=== PATIENT | male | born 1950 | race Caucasian/White ===

== ENCOUNTER 2017-11-05 13:34 | Emergency (ER) | payer MEDICARE, BC, SELFPAY ==
[2017-11-05 13:35] VITALS: BP 129/75; PULSE 64; RESP 20; TEMP 36.6; O2SAT 100; BMI 53.8
--- NOTE | 2017-11-05 14:03 | RAD_ITS ---
STUDY: X-RAY - LUMBAR SPINE REASON FOR EXAM: Male, 67 years old. Back pain. TECHNIQUE: 3 view(s) of the lumbar spine were obtained. COMPARISON: None FINDINGS: Normal lumbar lordosis. There is no substantial scoliosis. There is a normal alignment of the vertebrae. Normal vertebral bodies and endplates. There is intervertebral disc space narrowing in the lower thoracic and upper lumbar spine. There is also mild intervertebral disc space narrowing at L4-5. There is diffuse facet sclerosis. There is marked aortic calcification. RAD/Lumbar Spine 2 or 3 Views IMPRESSION: Lumbar spondylosis as described. No acute pathology. Electronically Signed: Gunnar Berry MD at 14:51 EST , Service support ,
--- NOTE | 2017-11-05 14:03 | ED.VISSUMM ---
- ER Visit Summary Date of Service: 11/05/17 Chief Complaint: Back injury History of Present Illness: The patient is a 67 M no significant prior medical history presents to the emergency department with back injury. Patient states he was in his normal state of health. He states yesterday, he was picking up a sweeper to look under it. He felt something pop in the right side of his low back. Since then, he has had pain into his buttock and down his leg. He states that because of the pain, is a hard time ambulating. He denies any weakness. He denies any numbness or tingling. He has had no change in bowel or bladder habits. He did not fall. He states that he did have similar symptoms about 10 years ago when he was diagnosed with sciatica. The patient has not taken anything for his pain. Physical Examination: Afebrile, vitals unremarkable. Well-appearing obese male no acute distress. Head is normocephalic, atraumatic. Pupil's equal round reactive, extraocular muscles intact. Neck supple. Heart regular rate and rhythm. Lungs clear, chest nontender. Abdomen soft, nontender, nondistended. No pulsatile mass. Patient has paraspinal tenderness in the right lumbar area, but no bony tenderness. Straight leg raise is negative bilaterally. 2+ symmetric lower extremity pulses. 2+ reflexes. No clonus. No weakness of dorsiflexion, plantar flexion, or extensor hallucis longus bilaterally. Test Results: X-ray shows chronic change without evidence of acute fracture. Emergency Department Course and Treatment: Patient has no red flag symptoms. He does have some slight radicular pain. His pulses are normal. His reflexes are normal. He was given oral analgesics with some improvement of pain. His x-rays show no evidence of acute compression fracture. The patient has had prior symptoms with improvement with steroids. He is given a dose of prednisone and I will keep him on Medrol. He is comfortable with this plan of care. I do feel he is likely going to need outpatient physical therapy. Patient was counseled on concerning symptoms and reasons to return. He will be discharged home. Treatment Plan: [] Disposition: Charge Impression: Acute lumbar strain with radiculopathy This note was generated with [employer] dictation software. It may contain incorrect words, spelling, and punctuation that were not noted in review of the chart prior to signing ED Disposition - Plan for ED Patient: Disposition: Home or Assisted Living Chief Complaint: Back Instructions: ED Sprain Strain Lumbar, ED Sciatica Prescriptions: Hydrocodone Bitart/Apap 5-325 [[place] 5/325] 1 tab PO Q4H PRN PRN 3 Days #12 tab PRN Reason: Pain MethylPREDNISolone DosePak [Medrol DosePak] 4 mg PO UD #1 box Referrals: Jose Fung Chi, MD [Primary Care Provider] -
[2017-11-05] MEDS: HYDROcodone Bitartrate/Apap 5/325 Tablet PO (14:11)
== END 2017-11-05 15:10 | disposition home or self-care (01) ==
PROVIDERS: Emergency Provider Emergency Medicine; Family Provider Family Medicine Geriatric Medicine; PCP Family Medicine Geriatric Medicine
DX: S39.012A Strain of muscle, fascia and tendon of lower back, initial encounter (principal); M54.16 Radiculopathy, lumbar region; X50.1XXA Overexertion from prolonged static or awkward postures, initial encounter; Y93.89 Activity, other specified; Y92.9 Unspecified place or not applicable; E66.9 Obesity, unspecified; Z68.43 Body mass index [BMI] 50.0-59.9, adult; Z87.891 Personal history of nicotine dependence
CPT/HCPCS: 72100; 99283

== ENCOUNTER → 2017-11-22 16:40 | Outpatient (CLI) | payer MEDICARE, BC, SELFPAY ==
[2017-11-22 17:24] LABS: Absolute Lymphocyte Count 2.33 X10^3/ul (0.83-4.51); Absolute Neutrophil Count 4.8 X10^3/uL (2.0-7.7); Basophil# 0.02 X10^3/uL; Basophil% 0.2 % (0-1); Eosinophils% 1.2 % (0-5); Hematocrit 43.2 % (40-54); Hemoglobin 14.1 g/dl (13.0-16.5); Lymphocyte # 2.33 X10^3/ul (4.0); Lymphocyte % 29.1 % (19-41); Mean Corp Hgb Conc 32.6 g/gl (32-36); Mean Corpuscular Hgb 30.8 pg (27.0-32.0); Mean Corpuscular Volume 94.3 fL (80-94); Mean Platelet Vol. 11.6 fl (6.2-12.0); Monocyte# 0.78 X10^3/uL; Monocyte% 9.7 % (0-10); Neutrophil # 4.78 X10^3/uL (2.7-7.7); Neutrophil % 59.7 % (47-70); Platelet Count 163 K/mm3 (150-450); RBC Distribution Width CV 14.1 % (11.6-14.6); RBC Distribution Width SD 47.6 fl (35.1-43.9); Red Blood Count 4.58 M/mm3 (4.6-6.2)
[2017-11-22 17:26] LABS: Differential Indicated SCAN CRITERIA MET; POSITIVE COUNT YES; POSITIVE DIFFERENTIAL NO; POSITIVE MORPHOLOGY YES
[2017-11-22 17:47] LABS: ALB/GLOB Ratio 0.9 RATIO (0.9-2.4); AST(SGOT) 17 U/L (15-37); Alanine Aminotransfer ALT/SGPT 20 U/L (16-61); Albumin, Serum 3.2 g/dL (3.2-5.0); Alkaline Phosphatase 104 U/L (45-117); Anion Gap 9 (5-15); BUN 22 mg/dL (7-18); BUN/Creat Ratio 19.8 RATIO (10-20); Calcium,Total 7.9 mg/dL (8.5-10.1); Chloride 107 mmol/L (98-107); Creatinine, Serum 1.11 mg/dL (0.70-1.30); EST Glomerular Filtration Rate 70 mL/min (>60); Est Glom Filt Rate - Afr Amer 85 mL/min (>60); Globulin 3.5 g/dL (2.2-4.2); Glucose 90 mg/dL (74-106); PSA,Total - Annual Screen 0.95 ng/mL (0.00-4.00); Potassium 4.6 mmol/L (3.5-5.1); Protein, Total 6.7 g/dL (6.4-8.2); Sodium Level 141 mmol/L (136-145)
[2017-11-22 17:53] LABS: Differential Comment SCANNED
[2017-11-24 13:13] LABS: Hep C Antibodies <0.1 s/co ratio (0.0-0.9)
== END ==
PROVIDERS: Family Provider Family Medicine Geriatric Medicine; PCP Family Medicine Geriatric Medicine; Visit Provider Family Medicine Geriatric Medicine
DX: Z12.5 Encounter for screening for malignant neoplasm of prostate (principal); Z13.89 Encounter for screening for other disorder; R53.83 Other fatigue
CPT/HCPCS: 36415; 80053; 84153; 84443; 85025; 86803; G0103

== ENCOUNTER 2019-03-14 18:35 | Observation (INO) | payer MEDICARE, BC, SELFPAY ==
[2019-03-14 18:35] VITALS: BP 157/78; PULSE 65; RESP 22; TEMP 36.6; O2SAT 96; BMI 52.9
--- NOTE | 2019-03-14 18:47 | CT_ITS ---
STUDY: CT BRAIN WITHOUT CONTRAST REASON FOR EXAM: Male, 69 years old. Vertigo RADIATION DOSAGE (If Supplied By Facility): CTDIvol = ( 44.99 ) mGy, DLP = ( 779.24 ) mGycm TECHNIQUE: Transaxial CT imaging of the brain was performed without administration of intravenous contrast material. Individualized dose optimization techniques were used for this CT. COMPARISON: No relevant priors. FINDINGS: Normal soft tissue structures. Normal calvarium. Normal size ventricles and extra-axial spaces for the patient's age. Minor periventricular white matter ischemic changes.. Normal basal ganglia and thalami. Normal brainstem. Normal cerebellum. There is no intracranial hemorrhage. There are no findings of an acute ischemic infarction. Normal visualized paranasal sinuses. CT/Brain/Head without Contrast IMPRESSION: Minor periventricular white matter ischemic changes. No evidence for acute bleed. If concern for acute infarct MRI recommended. Electronically Signed: Hussain Mcleod MD at 19:49 EDT , Service support ,
[2019-03-14] MEDS: Meclizine HCl 25 MG Tablet PO (19:20)
--- NOTE | 2019-03-14 19:30 | ED.RN ---
ATTEMPTED BLOOD DRAW X [address] AND THEN ANOTHER RN TO DRAW BLOOD.
[2019-03-14 20:05] LABS: Absolute Lymphocyte Count 2.22 X10^3/ul (0.83-4.51); Absolute Neutrophil Count 5.2 X10^3/uL (2.0-7.7); Basophil# 0.04 X10^3/uL; Basophil% 0.5 % (0-1); Eosinophil# 0.27 X10^3/uL; Eosinophils% 3.2 % (0-5); Hematocrit 43.8 % (40-54); Hemoglobin 14.5 g/dl (13.0-16.5); Lymphocyte # 2.22 X10^3/ul (4.0); Mean Corp Hgb Conc 33.1 g/gl (32-36); Mean Corpuscular Hgb 30.5 pg (27.0-32.0); Monocyte# 0.77 X10^3/uL; Neutrophil # 5.23 X10^3/uL (2.7-7.7); Neutrophil % 61.1 % (47-70); Platelet Count 163 K/mm3 (150-450); RBC Distribution Width CV 13.9 % (11.6-14.6); RBC Distribution Width SD 46.4 fl (35.1-43.9); Red Blood Count 4.76 M/mm3 (4.6-6.2); White Blood Count 8.6 K/mm3 (4.4-11.0)
[2019-03-14 20:06] LABS: POSITIVE COUNT NO; POSITIVE DIFFERENTIAL NO; POSITIVE MORPHOLOGY NO
[2019-03-14 20:18] LABS: Anion Gap 5 (5-15); BUN 23 mg/dL (7-18); BUN/Creat Ratio 15.6 RATIO (10-20); Calcium,Total 8.7 mg/dL (8.5-10.1); Chloride 109 mmol/L (98-107); Creatinine, Serum 1.47 mg/dL (0.70-1.30); EST Glomerular Filtration Rate 51 mL/min (>60); Est Glom Filt Rate - Afr Amer 61 mL/min (>60); Estimated Creatinine Clearance 55.14 ml/min; Glucose 94 mg/dL (74-106); Potassium 4.1 mmol/L (3.5-5.1); Sodium Level 140 mmol/L (136-145)
--- NOTE | 2019-03-14 21:04 | ED.VISSUMM ---
- ER Visit Summary Date of Service: 03/14/19 Chief Complaint: Vertigo History of Present Illness: The patient is a [address] Fung. He reports he has vertigo that began 3 days ago. Got much worse this morning when he sat up in bed. Is been constant throughout the day. Is increased with turning his head. He states that he is off balance. He denies any slurred speech or double vision. No headache, numbness, or weakness. He denies any ringing or roaring in his ears. No ear pain. No change in his hearing. Review of systems is otherwise negative. Physical Examination: Vitals: Stable. Afebrile. General: Well-nourished and well-developed. Head: Normocephalic atraumatic. Neck: Supple, no lymphadenopathy. No JVD. Nontender. Cardiovascular: Regular rate and rhythm. No murmurs. Respiratory: No respiratory distress. Clear to auscultation bilaterally. Abdominal: Soft, nontender, nondistended, normal bowel sounds. No guarding, rebound, or peritoneal signs. Back: Nontender. Extremities: Nontender, no edema. Skin: Normal color, no rash. Neurologic: Alert and oriented ?3. Cranial nerves II through XII are intact. Normal strength and sensation. No nystagmus. Normal cwakel-hixj-skpdrb and rngp-niur-xfjv bilaterally. Psych: Normal affect. Test Results: CBC is normal. Chem-7 shows a chloride of 109, BUN 23, creatinine 1.47. CT brain shows mild periventricular white matter ischemic changes and no acute disease. Emergency Department Course and Treatment: Patient was treated with Zofran and Antivert. He actually reports that he feels worse than he did when he arrived. States that he is still quite nauseated. Treatment Plan: At this time the patient is having a great deal difficulty ambulating. He remains symptomatic. He will be discussed with the hospitalist and admitted for further evaluation and treatment. Disposition: Admitted in stable condition. Impression: 1. Vertigo. 2. Renal insufficiency. This note was generated with [employer] eyesation software. It may contain incorrect words, spelling, and punctuation that were not noted in review of the chart prior to signing ED Disposition - Plan for ED Patient: Referrals: Jose Fung Chi, MD [Primary Care Provider] -
[2019-03-14 21:52] VITALS: BP 133/99; PULSE 56; RESP 22; O2SAT 98
--- NOTE | 2019-03-14 22:21 | HP.PCM_ITS ---
Problem List (1) Vertigo Status: Acute (2) COPD (chronic obstructive pulmonary disease) Status: Chronic (3) YESSICA (obstructive sleep apnea) Status: Acute History of Present Illness Date of Admission: 03/14/19 Chief Complaint: spinning sensation The patient is a 69 year old M with a significant history of COPD; right upper lung lobectomy; super morbid obesity and obstructive sleep apnea on home CPAP who presented to the emergency department with 3-day history of progressively worsening dizziness. He describes his dizziness as a spinning sensation. He has dizziness when he move his head up and when he get up immediately to a standing position. As he begins to walk his dizziness goes away. He denies any nausea, vomiting, hearing loss or recent upper respiratory symptoms. Past Medical History Past Medical History (Chronic Problems): Chronic Problems COPD (chronic obstructive pulmonary disease) (Chronic) Allergies No Known Allergies Allergy (Verified 11/05/17 13:37) Home Medications: Ambulatory Orders Medication Instructions Recorded NK 03/14/19 Surgical History: - - Right upper lung lobectomy; gastric bypass. Lives: Spouse/ Significant Other Alcohol: Occasional - *Family History Maternal History Items: - - Patient does not know Paternal History Items: - - Patient does not know Review of Systems Constitutional: Denies: Chills, Fever, Weight Change HEENT: Denies: Head Aches, Sinus Congestion, Sinus Drainage Cardiovascular: Denies: Chest Pain, Palpitations Respiratory: Denies: Cough Gastrointestinal: Denies: Abdominal Pain, Nausea, Vomiting Genitourinary: Denies: Dysuria Musculoskeletal: Denies: Joint Pain, Joint Tenderness Skin: Denies: Rash, Wounds Neurological: Denies: Numbness, Tingling, Focal weakness Psychiatric: Denies: Anxiety, Depression, Homicidal Ideations, Suicidal Ideations Hematologic/ Lymphatic: Denies: Easy Bruising, Easy Bleeding VTE Information - Inpt Only VTE Present on Admission: No VTE Mechan Device Prophylaxis: None VTE Pharm Prophylaxis ordered?: Yes Patient Problems: Active and Suspected Problems Vertigo (Acute) YESSICA (obstructive sleep apnea) (Acute) - Physical Exam General: Alert, Oriented x3, Cooperative, - - Morbidly obese HEENT: Atraumatic, PERRLA, EOMI - no nystagmus, Normocephalic, - - Debris in left ear. TM of left could not be visualized. R ear with wax building obscuring TM of right. Neck: Supple, No JVD, Negative Carotid Bruits Lungs: Clear to auscultation, Normal air movement Cardiovascular: Regular rate, No murmurs Abdomen: Bowel Sounds Present, Soft, Non Tender Extremities: No edema, Capillary Refill Less than 3 Seconds Skin: No rashes, No breakdown Musculoskeletal: No Tenderness to Palpation of Joints or Extremities Neurological: Cranial nerves II-XII grossly intact, - - Could not do Dixhallpike maneuver as patient started that he could not tolerating sitting up. Psych/Mental Status: Normal Affect, Appropriate Vital Signs Temp Pulse Resp BP Pulse Ox 97.8 F 56 L 22 H 133/99 H 98 03/14/19 18:35 03/14/19 21:52 03/14/19 21:52 03/14/19 21:52 03/14/19 21:52 Oxygen Delivery Method Room Air Weight: 186.9 kg Body Mass Index (BMI) 52.9 Laboratory Tests Past 24 Hrs 03/14/19 03/14/19 19:52 19:52 WBC 8.6 RBC 4.76 Hgb 14.5 Hct 43.8 MCV 92.0 MCH 30.5 MCHC 33.1 RDW 13.9 RDW Differential 46.4 H Plt Count 163 MPV 10.0 Immature Gran % (Auto) 0.200 Neut % (Auto) 61.1 Lymph % (Auto) 26.0 [place] % (Auto) 9.0 Eos % (Auto) 3.2 Baso % (Auto) 0.5 Absolute Neuts (auto) 5.2 Absolute Lymphs (auto) 2.22 Total Counted Not Reportable Sodium 140 Potassium 4.1 Chloride 109 H Carbon Dioxide 26.0 Anion Gap 5 BUN 23 H Creatinine 1.47 H Estim Creat Clear Calc 55.14 Est GFR (MDRD) Af Amer 61 Est GFR (MDRD) Non-Af 51 L BUN/Creatinine Ratio 15.6 Glucose 94 Calcium 8.7 Assessment/Plan All Active Problems Vertigo (Acute) YESSICA (obstructive sleep apnea) (Acute) The patient is a 69 year old M with a significant history of COPD; right upper lung lobectomy; super morbid obesity and obstructive sleep apnea on home CPAP who presented to the emergency department with 3-day history of progressively worsening vertigo. Vertigo Likely peripheral cause. Because of positional vertigo, BPPV is likely. Patient has no other neurological symptom. However, will rule out central cause. NINDS NIH Scale was [address] showed no evidence for acute bleed but with minor periventricular white matter ischemic changes. CT brain was independently reviewed. I agree with radiologist interpretation. Order MRI/MRA of head and neck. Order echocardiogram. Schedule meclizine 3 times daily Valium5 mg PO Q8H PRN Vestibular rehab to be started inpatient; and possibly continuing outpatient if a central cause of vertigo is ruled out. Physical therapy, and occupational therapy to work with patient. N.p.o. until bedside swallow eval. -Check Hba1c, Lipid level Permissive hypertension. Control blood pressure with labetalol for systolic blood pressure of more than 220 or diastolic blood pressure of more than 120. -Permissive HTN for 24 hrs RIVERA On presentation his creatinine was 1.47 Review of old records shows that this his creatinine on 11/22/2017 was 1.11 BUN over creatinine is 15.6. However, can rule out prerenal. Will start patient on gentle IV fluids.; lactated ringers. Of note patient has mild hyperchloremia. Avoid nephrotoxins Trend BMP. Elevated blood pressure the diagnosis of hypertension. Permissive hypertension per stroke protocol. Trend blood pressures. COPD PRN albuterol ordered Obstructive sleep apnea: Home CPAP continued DVT prophylaxis Subcutaneous Lovenox. Code Visit OBSV E&M: [id number] Initial observation care L3
[2019-03-14 23:10] VITALS: PULSE 58
[2019-03-14 23:29] VITALS: BP 127/82; BP 135/71; BP 148/87; PULSE 57; PULSE 59; PULSE 61; PULSE 77; RESP 18; TEMP 36.5; O2SAT 99
[2019-03-14 23:37] VITALS: BP 142/63
[2019-03-14 23:39] VITALS: BMI 52.5
--- NOTE | 2019-03-14 23:39 | ECHOCS_ITS ---
Reason For Study: Vertigo Procedure This was a 2D Doppler, Color Flow transthoracic echocardiogram. Technically difficult study due to patient body habitus. Contrast injection was performed. Exam performed portable in patient room. Left Ventricle Normal size and thickness. The estimated ejection fraction is 65 %. Stage 1 diastolic dysfunction. Right Ventricle Normal size and thickness. Normal systolic function. Atria Normal left atrium. Normal right atrium. Normal atrial septum. Mitral Valve The mitral valve is structurally normal. No prolapse or stenosis seen. Tricuspid Valve Normal tricuspid valve. Trivial tricuspid valve insufficiency. Right ventricular systolic pressure estimated to be 23 mmHg. Aortic Valve Normal aortic valve. Trisinus/trileaflet aortic valve. Pulmonic Valve Normal pulmonic valve. Great Vessels Normal aortic root. Normal arch. Normal inferior vena cava. Inferior vena cava collapse with sniff. Pericardium/Pleural No pericardial effusion. Medication Diluted definity 4ml given slow IV push to enhance endocardial definition. MMode/2D Measurements & Calculations LVIDd: 4.8 cm IVSd: 1.4 cm LAV(MOD-sp4): 87.9 ml LVIDs: 3.7 cm LVPWd: 1.5 cm FS: 22.4 % LVAd ap4: 41.4 cm2 SV(MOD-sp4): 100.6 ml SV(sp4-el): 108.4 ml EDV(MOD-sp4): 150.0 ml EDV(sp4-el): 157.2 ml LVAs ap4: 21.0 cm2 ESV(MOD-sp4): 49.3 ml ESV(sp4-el): 48.8 ml EF(MOD-sp4): 67.1 % EF(sp4-el): 69.0 % LA A4 area: 27.8 cm2 RA A4 area: 26.5 cm2 Time Measurements MV dec time: 0.22 sec Doppler Measurements & Calculations MV E max brian: 52.9 cm/sec Lat Peak E' Brian: 11.7 cm/sec Med Peak E' Brian: 7.4 cm/sec MV A max brian: 67.0 cm/sec E/E' lat: 4.5 E/E' med: 7.2 MV E/A: 0.79 MV V2 max: 84.8 cm/sec MV P1/2t max brian: 62.1 cm/sec Ao V2 max: 134.8 cm/sec MV max P.9 mmHg MV P1/2t: 65.4 msec Ao max P.3 mmHg MV V2 mean: 38.4 cm/sec Ao V2 mean: 84.2 cm/sec MV mean P.72 mmHg MV dec slope: 278.1 cm/sec2 Ao mean P.4 mmHg MV V2 VTI: 23.5 cm MVA(P1/2t): 3.4 cm2 Ao V2 VTI: 30.7 cm LV V1 max: 113.7 cm/sec TR max brian: 218.7 cm/sec LV V1 max P.2 mmHg TR max P.1 mmHg LV V1 mean P.4 mmHg LV V1 mean: 70.9 cm/sec LV V1 VTI: 27.1 cm Interpretation Summary The estimated ejection fraction is 65 %. Stage 1 diastolic dysfunction. Trivial tricuspid valve insufficiency. Right ventricular systolic pressure estimated to be 23 mmHg. Compared to echo report dated 12/10/2008, no appreciable changes noted. The study was technically difficult. Contrast injection was performed. Ordering Physician: Dandre Gudino Referring Physician: Dandre Gudino Performed By: Contreras Leon RCS
[2019-03-14 23:40] VITALS: PULSE 56
--- NOTE | 2019-03-14 23:44 | NURSING ---
Pt unsure if he has had a pneumonia shot.
[2019-03-14 23:45] VITALS: BMI 52.5
[2019-03-15] VITALS (13 sets, daily range): BP systolic 110–148; BP diastolic 63–95; PULSE 56–87; RESP 12–22; TEMP 36.4–37.2; O2SAT 96–100
[2019-03-15] MEDS: Lactated Ringers 1,000 ML 100 ML IV (00:35)
[2019-03-15] MEDS: 0.9% NaCl Peripheral Flush Adult/Peds IV ×3 (00:35→11:28)
[2019-03-15 00:45] LABS: Hemoglobin A1c 5.4 % (4.2-6.3)
[2019-03-15] MEDS: Meclizine HCl 25 MG Tablet PO ×2 (06:07→13:35)
[2019-03-15 06:44] LABS: Anion Gap 5 (5-15); BUN 23 mg/dL (7-18); BUN/Creat Ratio 18.9 RATIO (10-20); Calcium,Total 8.3 mg/dL (8.5-10.1); Chloride 111 mmol/L (98-107); Cholesterol 120 mg/dL (200); Creatinine, Serum 1.22 mg/dL (0.70-1.30); EST Glomerular Filtration Rate 63 mL/min (>60); Est Glom Filt Rate - Afr Amer 76 mL/min (>60); Estimated Creatinine Clearance 66.44 ml/min; Glucose 75 mg/dL (74-106); High Density Lipoprotein 38 mg/dL; Potassium 3.9 mmol/L (3.5-5.1); Sodium Level 141 mmol/L (136-145); Triglycerides 79 mg/dL; Very Low Density Lipoprotein 16 mg/dL (5-40)
--- NOTE | 2019-03-15 06:52 | MRI_ITS ---
STUDY: MRA OF THE HEAD WITHOUT CONTRAST REASON FOR EXAM: Male, 69 years old. Vertigo. TECHNIQUE: 3-D [id number]-uljzcj (TOF) imaging was performed with MIPs. The study was performed unenhanced. COMPARISON: None. FINDINGS: Normal bilateral petrous carotid arteries. Normal right cavernous carotid artery with a normal supraclinoid bifurcation. Normal left cavernous carotid artery with a normal supraclinoid bifurcation. Normal right A1 segments of the anterior cerebral artery. Normal left A1 segments of the anterior cerebral artery. Normal intact anterior communicating artery (ACOM). Normal bilateral A2 segments of the anterior cerebral arteries. Normal right M1 and M2 segments of the middle cerebral arteries, with a normal M1 bifurcation. Normal left M1 and M2 segments of the middle cerebral arteries, with a normal M1 bifurcation. There is non-visualization of the right posterior communicating artery (PCOM). Normal left posterior communicating artery (PCOM). Normal bilateral vertebral arteries. Normal basilar artery with a normal basilar bifurcation. The visualized bilateral superior cerebellar (SCA) arteries are normal. Normal bilateral P1, P2 and visualized P3 segments of the posterior cerebral arteries. There is no demonstrated aneurysm of the [place]. There is no major vessel occlusion or hemodynamically significant stenosis. There is no demonstrated abnormality of the visualized brain. MRI/MRA Head ONLY without Contrast IMPRESSION: No evidence of significant steno-occlusive disease or aneurysm. Electronically Signed: Hector Smith DO at 10:19 EDT , Service support ,
--- NOTE | 2019-03-15 06:52 | MRI_ITS ---
STUDY: MRI BRAIN WITHOUT CONTRAST REASON FOR EXAM: Male, 69 years old. Vertigo. TECHNIQUE: Standardized multiplanar fat and water weighted pulse sequences were obtained. COMPARISON: None. FINDINGS: There is mild cerebral atrophy with widening of the extra-axial spaces and ventricular dilatation. There are a limited number of small white matter hyperintensities, distributed throughout the deep white matter tracts of the cerebral hemispheres, consistent with mild chronic white matter ischemic changes. There is no evidence for recent intracranial ischemia or other cause of cytotoxic edema on diffusion weighted imaging (DWI). Normal T2* images of the brain without demonstrated susceptibility artifact. There is no demonstrated hemosiderin stain. Normal bilateral basal ganglia. Normal thalami. There is no extra-axial fluid accumulation. Normal flow voids within the major intracranial circulation suggesting patency by spin echo criteria. Normal sella turcica, pituitary gland, infundibular stalk, optic chiasm and hypothalamus. Normal tectal plate and pineal gland. Normal midbrain, kellen and medulla. Normal cerebellum. Normal basal cisterns. Normal bilateral temporal bones. Normal bilateral internal auditory canals. No demonstrated orbital abnormality, within the constraints of a routine brain study. Normal visualized paranasal sinuses. Normal calvarium and skull base. Normal visualized soft tissue structures. Normal visualized upper cervical spine. MRI/Brain without Contrast IMPRESSION: Senescent changes above with no evidence of acute intracranial bleed, mass or ischemia. Electronically Signed: Hector Smith DO at 10:19 EDT , Service support ,
--- NOTE | 2019-03-15 06:53 | MRI_ITS ---
STUDY: MRA NECK WITH AND WITHOUT CONTRAST REASON FOR EXAM: Male, 69 years old. Vertigo. TECHNIQUE: 3-D [id number] (TOF) imaging was performed in an 1.5 T MRI scanner. 30 IV Dotarem was administered for the contrast enhanced images. COMPARISON: None. FINDINGS: RIGHT CAROTID ARTERIES: Normal right common carotid artery (CCA). Normal right common carotid bulb. Normal origin of the right internal carotid (ICA) artery without a hemodynamically significant stenosis. Normal visualized cervical portion of the right internal carotid artery. Normal origin of the right external carotid artery (ECA). LEFT CAROTID ARTERIES: Normal left common carotid artery (CCA). Normal left common carotid bulb. Normal origin of the left internal carotid (ICA) artery without a hemodynamically significant stenosis. Normal visualized cervical portion of the left internal carotid artery. Normal origin of the left external carotid artery (ECA). VERTEBRAL ARTERIES: Normal antegrade flow within the bilateral vertebral artery without a hemodynamically significant stenosis. MRI/MRA Neck WITH and W/O Contrast IMPRESSION: No evidence of significant steno-occlusive disease or aneurysm. Electronically Signed: Hector Smith DO at 10:21 EDT , Service support ,
--- NOTE | 2019-03-15 10:34 | EKG12_ITS ---
Test Reason : LIZ Blood Pressure : / mmHG Vent. Rate : 063 BPM Atrial Rate : 063 BPM P-R Int : 172 ms QRS Dur : 092 ms QT Int : 416 ms P-R-T Axes : 065 002 055 degrees QTc Int : 425 ms Normal sinus rhythm Low voltage QRS Borderline ECG When compared with ECG of 10-SEP-2009 19:30, Vent. rate has decreased BY 31 BPM Confirmed by BRO BANG, HEMA ([id number]), editorial manager JIGAR PORTILLO ([id number]) on 03/19/2019 8:10:50 AM Referred By: Dandre Gudino Confirmed By:HEMA CRABTREE MD
--- NOTE | 2019-03-15 12:56 | PCM.DC ---
- Discharge Diagnoses Current Active Problems: Current Active and Chronic Problems Vertigo (Acute) COPD (chronic obstructive pulmonary disease) (Chronic) YESSICA (obstructive sleep apnea) (Acute) You will use the following diet at home:: Calorie/Carbohydrate Controlled (specify 1200, 1400, etc) Discharge Activity: Return to Normal Activity Call your doctor if you observe: Shortness of breath, Dizziness, Fainting spells, Chest pain Allergies/Adverse Reactions: Allergies No Known Allergies Allergy (Verified 11/05/17 13:37) Medications to take at Discharge Meclizine HCl [Antivert] 25 mg PO TID PRN #30 tab 03/15/19 The following prescriptions were given: Meclizine HCl [Antivert] 25 mg PO TID PRN #30 tab PRN Reason: Vertigo Transmission Status: Pending to [facility]/pharmacy #[id number] Primary Care Physician: Jose Fung Chi, MD [Primary Care Provider] - Please follow up with your Primary Care Physician in: 1 Week Test Results: Test results from this visit will be discussed in further detail at your follow-up appointment, if applicable. Please Follow Up With: Artie Clark MD - ENT When: Call for appointment Proposed Discharge Date: 03/15/19
--- NOTE | 2019-03-15 12:59 | DS.PCM_ITS ---
<Karis Hatfield - Last Filed: 03/15/19 13:11> Discharge Date and Diagnosis Date of Admission: 03/14/19 Date of Discharge: 03/15/19 - Primary Discharge Diagnosis Active and Suspected Problems 1. Vertigo, BPPV-CVA ruled out 2. Acute kidney injury on chronic kidney disease stage II 3. Chronic COPD 4. YESSICA 5. Morbid obesity - Secondary Discharge Diagnosis Chronic Problems COPD (chronic obstructive pulmonary disease) (Chronic) Hospital Course and Treatment Imaging Results: Diagnostic Data Brain CT 03/14/19 18:47 IMPRESSION: Minor periventricular white matter ischemic changes. No evidence for acute bleed. If concern for acute infarct MRI recommended. Electronically Signed: Hussain Mcleod MD at 19:49 EDT , Service support , Brain MRI 03/15/19 06:52 IMPRESSION: Senescent changes above with no evidence of acute intracranial bleed, mass or ischemia. Electronically Signed: Hector Smith DO at 10:19 EDT , Service support , Head MRA 03/15/19 06:52 IMPRESSION: No evidence of significant steno-occlusive disease or aneurysm. Electronically Signed: Hector Smith DO at 10:19 EDT , Service support , Neck MRA 03/15/19 06:53 IMPRESSION: No evidence of significant steno-occlusive disease or aneurysm. Electronically Signed: Hector Smith DO at 10:21 EDT , Service support , Operations: None Procedures: 2-D Echocardiogram Summary of Care Provided: The patient is a 69 year old M admitted 03/14/2019 due to spinning sensation. 1. Vertigo, BPPV-CVA ruled out. Brain CT with no evidence of acute bleed. MRI of brain with mild chronic white matter ischemic changes. No evidence of acute intracranial bleed, mass or ischemia. MRA of head and neck unremarkable. Orthostatic vitals negative. Other work-up unremarkable. Recommend follow-up with ENT at discharge for vestibular therapy. Discharged on meclizine as needed for vertigo. PT evaluated prior to discharge. Stable for discharge home with further outpatient follow-up. Follow-up with primary care provider in 1 week. Echocardiogram completed, report pending and will be reviewed prior to discharge. 2. Acute kidney injury on chronic kidney disease stage II-RIVERA secondary to dehydration. Resolved with IV fluids. 3. Chronic COPD-no acute exacerbation. Not on home inhaler regimen. 4. YESSICA-continue home CPAP regimen. 5. Morbid obesity-encourage diet lifestyle modifications. Patient seen and examined prior to discharge. Physical assessment as noted below. Patient is stable for discharge with follow up recommendations as noted above. This patient was seen by MILLY Arciniega under the supervision of Dr. Romero. - Physical Exam General: Alert, Oriented x3, Cooperative HEENT: Atraumatic, PERRLA, EOMI, Normocephalic Neck: Supple, No JVD, Negative Carotid Bruits Lungs: Clear to auscultation, Diminished Cardiovascular: Regular rate, Regular Rhythm, Normal S1, Normal S2, No murmurs Abdomen: Bowel Sounds Present, Soft, Non Tender, Non-Distended, Obese Extremities: No clubbing, No cyanosis, No edema, Capillary Refill Less than 3 Seconds Skin: No rashes, No breakdown Musculoskeletal: No Tenderness to Palpation of Joints or Extremities Neurological: Cranial nerves II-XII grossly intact, Neuro grossly intact Psych/Mental Status: Normal Affect, Appropriate Vital Signs Temp Pulse Resp BP Pulse Ox 98.0 F 65 18 144/69 H 99 03/15/19 11:29 03/15/19 11:29 03/15/19 11:29 03/15/19 11:29 03/15/19 11:29 Oxygen Delivery Method Room Air Weight: 409 lb 2.847 oz Body Mass Index (BMI) 52.5 Orthostatic Vital Signs Start: 03/14/19 23:29 Freq: q24h Status: Active Protocol: Activity Type Activity Date Activity User E-Sign Co-Sign Detail Recorded Client Recorded Date Recorded By Document 03/15/19 06:10 [facility] [id number] 03/15/19 06:22 [facility] 03/15/19 06:10 Orthostatic Vitals Standing -Blood Pressure (90/60-120/80) 130/95 H -Extremity Use Right Arm -Pulse Rate (60-100) 87 Sitting -Blood Pressure (90/60-120/80) 120/83 H -Extremity Use Right Arm -Pulse Rate (60-100) 72 Lying -Blood Pressure (90/60-120/80) 110/63 -Extremity Use Right Arm -Pulse Rate (60-100) 59 L Intake and Output for Last 24 Hours 03/13/19 03/14/19 03/15/19 23:59 23:59 23:59 Intake Total 0 / 0 1707 / 1707 Output Total 0 / 0 Balance 0 / 0 1707 / 1707 Laboratory Tests Past 24 Hrs 03/14/19 03/14/19 03/14/19 19:52 19:52 19:52 WBC 8.6 RBC 4.76 Hgb 14.5 Hct 43.8 MCV 92.0 MCH 30.5 MCHC 33.1 RDW 13.9 RDW Differential 46.4 H Plt Count 163 MPV 10.0 Immature Gran % (Auto) 0.200 Neut % (Auto) 61.1 Lymph % (Auto) 26.0 Andrews % (Auto) 9.0 Eos % (Auto) 3.2 Baso % (Auto) 0.5 Absolute Neuts (auto) 5.2 Absolute Lymphs (auto) 2.22 Total Counted Not Reportable Sodium 140 Potassium 4.1 Chloride 109 H Carbon Dioxide 26.0 Anion Gap 5 BUN 23 H Creatinine 1.47 H Estim Creat Clear Calc 55.14 Est GFR (MDRD) Af Amer 61 Est GFR (MDRD) Non-Af 51 L BUN/Creatinine Ratio 15.6 Glucose 94 Hemoglobin A1c 5.4 Calcium 8.7 Triglycerides Cholesterol LDL Cholesterol VLDL Cholesterol HDL Cholesterol 03/15/19 05:30 WBC RBC Hgb Hct MCV MCH MCHC RDW RDW Differential Plt Count MPV Immature Gran % (Auto) Neut % (Auto) Lymph % (Auto) Andrews % (Auto) Eos % (Auto) Baso % (Auto) Absolute Neuts (auto) Absolute Lymphs (auto) Total Counted Sodium 141 Potassium 3.9 Chloride 111 H Carbon Dioxide 25.0 Anion Gap 5 BUN 23 H Creatinine 1.22 Estim Creat Clear Calc 66.44 Est GFR (MDRD) Af Amer 76 Est GFR (MDRD) Non-Af 63 BUN/Creatinine Ratio 18.9 Glucose 75 Hemoglobin A1c Calcium 8.3 L Triglycerides 79 Cholesterol 120 LDL Cholesterol 66 VLDL Cholesterol 16 HDL Cholesterol 38 L Discharge Diet: Low fat/ Low Cholesterol, 1800 Calorie Control Diet Discharge Activity: Return to Normal Activity Call your doctor if you observe: Shortness of breath, Dizziness, Fainting spells, Chest pain Home Medications: Medications to take at Discharge Meclizine HCl [Antivert] 25 mg PO TID PRN #30 tab 03/15/19 Following Prescrptions Were Given to Patient: Meclizine HCl [Antivert] 25 mg PO TID PRN #30 tab PRN Reason: Vertigo Transmission Status: Received by [id number] Primary Care Physician: Jose Fung Chi, MD [Primary Care Provider] - Please follow up with your Primary Care Physician in: 1 Week Please Follow Up With: Artie Clark MD - ENT When: Call for appointment Disposition: Home Minutes spent on discharge:: 35 Patient Condition:: Stable Medical Necessity - Tobacco Use Smoking Status: Former smoker Tobacco Use: Cigarettes Meaningful Use Info Meaningful Use Diagnoses (Choose all that apply): None applicable <NestorjanicekrisSadaf E - Last Filed: 03/15/19 13:21> Discharge Date and Diagnosis - Secondary Discharge Diagnosis Chronic Problems COPD (chronic obstructive pulmonary disease) (Chronic) Hospital Course and Treatment Imaging Results: 03/15/19 06:52 Brain without Contrast [MRI] Routine MRA Head ONLY without Contrast [MRI] Routine 03/15/19 06:53 MRA Neck WITH and W/O Contrast [MRI] Routine Summary of Care Provided: Hospitalist note: Discharge summary above reviewed and I concur with the above discharge and treatment plan. Patient was admitted because of dizziness which was described by the patient as spinning sensation, worsened with head movement. Initially, there was a concern that patient may have acute stroke. CT scan brain showed no acute findings. MRI brain also performed and showed no evidence of acute infarct or hemorrhage. Both MRA of the head and neck performed and were unremarkable. He was found to have mild worsening of his chronic kidney disease and on admission, creatinine was 1.47. He received IV fluids and his creatinine came down to 1.22 which is close to his baseline. His vital signs were stable throughout admission. His EKG revealed sinus rhythm without evidence of acute ischemic changes or cardiac arrhythmias. His heart rate was in the high 50s and 60s and does not seem to be associated with his symptoms. Acute stroke ruled out. His symptoms are attributed to BPPV. Patient discharged home in a stable medical condition, discharged on meclizine as neede d, recommended vestibular therapy and ENT follow-up as outpatient, follow-up with PCP in 1 week. - Physical Exam General: Alert, Oriented x3, Cooperative, No apparent distress. HEENT: Atraumatic, PERRLA, EOMI. Neck: Supple, No JVD, Negative Carotid Bruits, Trachea Midline, Thyroid Normal. Lungs: Clear to auscultation, Normal air movement, No rhonchi, No wheeze, No rales. Cardiovascular: Regular rate, Regular Rhythm, Normal S1, Normal S2, PMI Normal. Abdomen: Bowel Sounds Present, Soft, Non Tender, Non-Distended, No Hepato- splenomegaly. Extremities: No clubbing, No cyanosis, No edema Skin: No rashes, No breakdown Neurological: Cranial nerves are intact, no nystagmus. Normal power and tone, neuro grossly intact Vital Signs are stable. This note was generated with [employer] dictation software. It may contain incorrect words, spelling, and punctuation that were not noted in checking the note before signing. - Physical Exam Vital Signs Temp Pulse Resp BP Pulse Ox 98.0 F 65 18 144/69 H 99 03/15/19 11:29 03/15/19 11:29 03/15/19 11:29 03/15/19 11:29 03/15/19 11:29 Oxygen Delivery Method Room Air Weight: 409 lb 2.847 oz Body Mass Index (BMI) 52.5 Orthostatic Vital Signs Start: 03/14/19 23:29 Freq: q24h Status: Active Protocol: Activity Type Activity Date Activity User E-Sign Co-Sign Detail Recorded Client Recorded Date Recorded By Document 03/15/19 06:10 [facility] [id number] 03/15/19 06:22 [facility] 03/15/19 06:10 Orthostatic Vitals Standing -Blood Pressure (90/60-120/80) 130/95 H -Extremity Use Right Arm -Pulse Rate (60-100) 87 Sitting -Blood Pressure (90/60-120/80) 120/83 H -Extremity Use Right Arm -Pulse Rate (60-100) 72 Lying -Blood Pressure (90/60-120/80) 110/63 -Extremity Use Right Arm -Pulse Rate (60-100) 59 L Intake and Output for Last 24 Hours 03/13/19 03/14/19 03/15/19 23:59 23:59 23:59 Intake Total 0 / 0 1707 / 1707 Output Total 0 / 0 Balance 0 / 0 1707 / 1707 Laboratory Tests Past 24 Hrs 03/14/19 03/14/19 03/14/19 19:52 19:52 19:52 WBC 8.6 RBC 4.76 Hgb 14.5 Hct 43.8 MCV 92.0 MCH 30.5 MCHC 33.1 RDW 13.9 RDW Differential 46.4 H Plt Count 163 MPV 10.0 Immature Gran % (Auto) 0.200 Neut % (Auto) 61.1 Lymph % (Auto) 26.0 Andrews % (Auto) 9.0 Eos % (Auto) 3.2 Baso % (Auto) 0.5 Absolute Neuts (auto) 5.2 Absolute Lymphs (auto) 2.22 Total Counted Not Reportable Sodium 140 Potassium 4.1 Chloride 109 H Carbon Dioxide 26.0 Anion Gap 5 BUN 23 H Creatinine 1.47 H Estim Creat Clear Calc 55.14 Est GFR (MDRD) Af Amer 61 Est GFR (MDRD) Non-Af 51 L BUN/Creatinine Ratio 15.6 Glucose 94 Hemoglobin A1c 5.4 Calcium 8.7 Triglycerides Cholesterol LDL Cholesterol VLDL Cholesterol HDL Cholesterol 03/15/19 05:30 WBC RBC Hgb Hct MCV MCH MCHC RDW RDW Differential Plt Count MPV Immature Gran % (Auto) Neut % (Auto) Lymph % (Auto) Andrews % (Auto) Eos % (Auto) Baso % (Auto) Absolute Neuts (auto) Absolute Lymphs (auto) Total Counted Sodium 141 Potassium 3.9 Chloride 111 H Carbon Dioxide 25.0 Anion Gap 5 BUN 23 H Creatinine 1.22 Estim Creat Clear Calc 66.44 Est GFR (MDRD) Af Amer 76 Est GFR (MDRD) Non-Af 63 BUN/Creatinine Ratio 18.9 Glucose 75 Hemoglobin A1c Calcium 8.3 L Triglycerides 79 Cholesterol 120 LDL Cholesterol 66 VLDL Cholesterol 16 HDL Cholesterol 38 L Disposition: Home Minutes spent on discharge:: 25 Patient Condition:: Stable Meaningful Use Info Meaningful Use Diagnoses (Choose all that apply): None applicable Code Visit OBSV E&M: 91593 Observation care discharge
== END 2019-03-15 12:57 | disposition home or self-care (01) ==
LOC: ED 19:12 → PCU 22:47
PROVIDERS: Admitting Provider Hospitalist; Emergency Provider Emergency Medicine; Family Provider Family Medicine Geriatric Medicine; PCP Family Medicine Geriatric Medicine; Referring Provider Hospitalist; Visit Provider Hospitalist
DX: H81.10 Benign paroxysmal vertigo, unspecified ear (principal); N18.2 Chronic kidney disease, stage 2 (mild); N17.9 Acute kidney failure, unspecified; J44.9 Chronic obstructive pulmonary disease, unspecified; G47.33 Obstructive sleep apnea (adult) (pediatric); E66.01 Morbid (severe) obesity due to excess calories; Z68.43 Body mass index [BMI] 50.0-59.9, adult; Z71.3 Dietary counseling and surveillance; I07.1 Rheumatic tricuspid insufficiency; I12.9 Hypertensive chronic kidney disease with stage 1 through stage 4 chronic kidney disease, or unspecified chronic kidney disease; E87.8 Other disorders of electrolyte and fluid balance, not elsewhere classified; R29.700 NIHSS score 0
CPT/HCPCS: 36415; 70450; 70544; 70549; 70551; 80048; 80061; 83036; 85025; 93005; 93306; 94002; 96360; 96361; 97161; 97166; 99218; 99285; A9575; J7040; J7120; Q9957; A4216; C8929; G0378; J2405

== ENCOUNTER 2020-06-05 15:20 | Emergency (ER) | payer MEDICARE, BC, SELFPAY ==
[2020-06-05 15:20] VITALS: BP 135/96; PULSE 88; RESP 24; TEMP 36.9; O2SAT 96
[2020-06-05 15:21] VITALS: BP 135/96; PULSE 92; RESP 18; TEMP 36.9; O2SAT 97; BMI 52.4
--- NOTE | 2020-06-05 15:30 | EKG12_ITS ---
Test Reason : GI BLEED Blood Pressure : / mmHG Vent. Rate : 083 BPM Atrial Rate : 083 BPM P-R Int : 162 ms QRS Dur : 084 ms QT Int : 360 ms P-R-T Axes : 067 014 062 degrees QTc Int : 423 ms Normal sinus rhythm Normal ECG Confirmed by BRO BANG, HEMA ([id number]), food expeditor JIGAR PORTILLO ([id number]) on 06/08/2020 1:20:57 PM Referred By: Confirmed By:HEMA CRABTREE MD
--- NOTE | 2020-06-05 15:34 | ED.VIS.GEN ---
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 Patient denies fever, chills night sweats. Patient denies ocular, visual auditory symptoms. Patient denies cardiac or respiratory symptoms other than the orthostatic symptoms. Patient denies nausea or vomiting. Patient denies bruising easily. He is on no antiplatelet or anticoagulant. Patient denies urinary symptoms and specifically hematuria. He states he was in his normal state of health until today. Prior similar symptoms: No Recent Illness/Hospitalization: No - Past Medical History (1) YESSICA (obstructive sleep apnea) Status: Acute (2) COPD (chronic obstructive pulmonary disease) Status: Chronic Past Medical History - Allergies and Home Meds Allergies/Adverse Reactions: Allergies No Known Allergies Allergy (Verified 11/05/17 13:37) Primary Care Physician: Jose Fung Chi, MD [Primary Care Provider] - Surgical History: - - Right upper lung lobectomy; gastric bypass. Smoking Status: Former smoker Alcohol: None Drugs: None - Family History Maternal Family History: Reports: - - Patient does not know Paternal Family History: Reports: - - Patient does not know Review of Systems General: Denies: Chills, Fever, Malaise, Subjective, Sweats Eyes: Denies: Visual changes - bilaterally, Blurred Vision - bilaterally ENT: Denies: Rhinorrhea, Sore throat Cardiovascular: Reports: - - Orthostatic symptoms with standing. Denies: Chest pain, Palpitations Respiratory: Denies: Dyspnea, Cough, Dyspnea on exertion Gastrointestinal: Reports: Melena, Hematochezia. Denies: Abdominal pain, Nausea, Vomiting, Diarrhea Genitourinary: Denies: Dysuria, Hematuria, Frequency Musculoskeletal: Denies: Myalgias, Arthralgias, Neck pain, Back pain, Swelling, Extremity Pain Skin: Denies: Rash, Wounds Neurological: Reports: Weakness. Denies: Headache Endocrine: Denies: Polyuria, Polydipsia Hematologic: Denies: Easy bruising, Easy bleeding Physical Exam Vital Signs/Narrative: Vital Signs Temp Pulse Resp BP Pulse Ox 06/05/20 15:21 98.4 F 92 18 135/96 H 97 06/05/20 15:20 98.4 F 88 24 H 135/96 H 96 Inital Vital Signs reviewed: Yes General: Well nourished, Well developed, No Acute Distress Head: Normocephalic, Atraumatic Eyes: Perrl, EOMI. Negative for: Pale conjunctiva ENT: Moist mucous membranes, No rhinorrhea Neck: Supple, Nontender, No lymphadenopathy, No JVD Cardiovascular: Regular rate, Regular rhythm, No murmurs, Normal S1, Normal S2 Respiratory: No distress, CTA bilaterally, Chest nontender, - - Well-healed scar noted due to right upper lobe lobectomy Abdomen: Soft, Nontender, Nondistended, Normal bowel sounds, Ventral hernia, Hernia reducible Rectal: - - Maroon-colored stool, no fissures or fistulas noted Back: Nontender, Normal Inspection Extremities: Nontender, No edema Skin: No rash, Pallor. Negative for: Cyanosis, Diaphoresis, Jaundice, No Trauma Neurological: Alert, Oriented x3, Cranial nerves II-XII grossly intact, Normal Strength, Normal Sensation Psychological: Normal affect Diagnostic/Tx/Re-eval 06/05/20 15:30 Stool Stool Occult Blood (JOSE MARTIN) - Final Laboratory Results 06/05/20 06/05/20 06/05/20 15:30 15:30 15:30 WBC 9.6 RBC 3.81 L Hgb 12.0 L Hct 36.4 L MCV 95.5 H MCH 31.5 MCHC 33.0 RDW Std Deviation 46.2 H RDW Coeff of Kellie 13.5 Plt Count 199 MPV 10.8 Immature Gran % (Auto) 0.500 Neut % (Auto) 75.5 H Lymph % (Auto) 15.9 L Tucker % (Auto) 6.4 Eos % (Auto) 1.2 Baso % (Auto) 0.5 Absolute Neuts (auto) 7.3 Absolute Lymphs (auto) 1.53 Nucleated RBC % 0 PT 13.8 INR 1.1 APTT 23.5 L Sodium 140 Potassium TNP Chloride 112 H Carbon Dioxide 22.0 Anion Gap 6 BUN 46 H Creatinine 1.41 H Estim Creat Clear Calc 56.68 Est GFR (MDRD) Af Amer 64 Est GFR (MDRD) Non-Af 53 L BUN/Creatinine Ratio 32.6 H Glucose 120 H Lactic Acid Calcium 7.8 L Total Bilirubin 0.50 AST 49 H ALT 17 Alkaline Phosphatase 78 Total Protein 6.7 Albumin 3.0 L Globulin 3.7 Albumin/Globulin Ratio 0.8 L Blood Type Antibody Screen 06/05/20 06/05/20 15:30 16:00 WBC RBC Hgb Hct MCV MCH MCHC RDW Std Deviation RDW Coeff of Kellie Plt Count MPV Immature Gran % (Auto) Neut % (Auto) Lymph % (Auto) Tucker % (Auto) Eos % (Auto) Baso % (Auto) Absolute Neuts (auto) Absolute Lymphs (auto) Nucleated RBC % PT INR APTT Sodium Potassium Chloride Carbon Dioxide Anion Gap BUN Creatinine Estim Creat Clear Calc Est GFR (MDRD) Af Amer Est GFR (MDRD) Non-Af BUN/Creatinine Ratio Glucose Lactic Acid 1.7 Calcium Total Bilirubin AST ALT Alkaline Phosphatase Total Protein Albumin Globulin Albumin/Globulin Ratio Blood Type B POSITIVE Antibody Screen NEGATIVE Hemoglobin is decreased from 18 months ago. BUN to creatinine ratio is less than 21. Orthostatic vitals were normal. Contacted the lab regarding the negative occult test because of concern this represents a false negative. I was informed that the test is sensitive to 50 ng of blood. The decontamination technician retested the sample that was sent and was negative. Anoscope was performed. There is evidence of irritation of the rectal/anal mucosa. There is a hemorrhoid noted at 5:00 lithotomy position. There is evidence of bleeding. The stool that was visualized is brown suspect that the blood and stool mixed to give a maroon color. This does not explain the negative Hemoccult test however. Upon further questioning patient does admit to red-colored water in the commode. This would be consistent with bright red blood due to hemorrhoidal bleeding 95% of the times. Since there is an identifiable hemorrhoid noted on anoscopy this is the cause of bleeding in my professional opinion. - Medical Decision Making Presents with dark/maroon-colored stool. He does have history of gastric bypass surgery. He denies use of NSAIDs. This may represent a brisk upper GI bleed since he reports orthostatic symptoms with standing versus a lower GI bleed due to diverticulosis. He denies history of diverticulosis or diverticulitis. Appropriate labs were obtained as well as type and screen. Will obtain records from Dr. Haley's office to determine what surgical procedures he has had done. ED Disposition - Plan for ED Patient: Disposition: Home or Assisted Living Diagnosis: Bleeding external hemorrhoids, Vasovagal near syncope Instructions: ED Hemorrhoids, ED Near Syncope Vasovagal Referrals: Jose Fung Chi, MD [Primary Care Provider] - 3-5 Days if not improving
[2020-06-05 15:48] VITALS: BP 101/70; BP 110/86; BP 115/73; PULSE 112; PULSE 83; PULSE 88
[2020-06-05] MEDS: 0.9% Normal Saline 1,000 ML 1000 ML IV (15:56)
[2020-06-05 16:02] LABS: Absolute Lymphocyte Count 1.53 X10^3/uL (0.83-4.51); Absolute Neutrophil Count 7.3 X10^3/uL (2.0-7.7); Basophil# 0.05 X10^3/uL; Basophil% 0.5 % (0-1); Eosinophil# 0.12 X10^3/uL; Eosinophils% 1.2 % (0-5); Hematocrit 36.4 % (40-54); Lymphocyte # 1.53 X10^3/ul (4.0); Lymphocyte % 15.9 % (19-41); Mean Corpuscular Hgb 31.5 pg (27.0-32.0); Mean Corpuscular Volume 95.5 fL (80-94); Mean Platelet Vol. 10.8 fl (6.2-12.0); Monocyte# 0.62 X10^3/uL; Monocyte% 6.4 % (0-10); NRBC Flagged by Analyzer 0 % (0-5); Neutrophil # 7.25 X10^3/uL (2.7-7.7); Neutrophil % 75.5 % (47-70); Platelet Count 199 K/mm3 (150-450); RBC Distribution Width CV 13.5 % (11.6-14.6); RBC Distribution Width SD 46.2 fl (35.1-43.9); Red Blood Count 3.81 M/mm3 (4.6-6.2); White Blood Count 9.6 K/mm3 (4.4-11.0)
[2020-06-05 16:10] LABS: International Normalized Ratio 1.1; Prothrombin Time (Protime)PT. 13.8 SECONDS (11.7-14.9)
[2020-06-05 16:11] LABS: Partial Thromboplast Time 23.5 Seconds (24.1-36.2)
[2020-06-05 16:20] LABS: ALB/GLOB Ratio 0.8 RATIO (0.9-2.4); AST(SGOT) 49 U/L (15-37); Alanine Aminotransfer ALT/SGPT 17 U/L (16-61); Alkaline Phosphatase 78 U/L (45-117); Anion Gap 6 (5-15); BUN 46 mg/dL (7-18); BUN/Creat Ratio 32.6 RATIO (10-20); Calcium,Total 7.8 mg/dL (8.5-10.1); Chloride 112 mmol/L (98-107); Creatinine, Serum 1.41 mg/dL (0.70-1.30); EST Glomerular Filtration Rate 53 mL/min (>60); Est Glom Filt Rate - Afr Amer 64 mL/min (>60); Estimated Creatinine Clearance 56.68 ml/min; Globulin 3.7 g/dL (2.2-4.2); Glucose 120 mg/dL (74-106); Protein, Total 6.7 g/dL (6.4-8.2); Sodium Level 140 mmol/L (136-145)
[2020-06-05 16:47] LABS: Lactic Acid 1.7 mmol/L (0.4-1.9)
[2020-06-05 17:36] VITALS: BP 111/61; PULSE 68; RESP 16; O2SAT 99
[2020-06-05] MEDS: 0.9% Normal Saline 1,000 ML 150 ML IV (17:42)
[2020-06-05 19:52] VITALS: BP 127/65; PULSE 60; RESP 17; O2SAT 99
== END 2020-06-05 20:19 | disposition home or self-care (01) ==
PROVIDERS: Emergency Provider Emergency Medicine; PCP Family Medicine Geriatric Medicine
DX: K64.4 Residual hemorrhoidal skin tags (principal); R55 Syncope and collapse; E66.01 Morbid (severe) obesity due to excess calories; Z87.891 Personal history of nicotine dependence; Z98.84 Bariatric surgery status
CPT/HCPCS: 36415; 46600; 80053; 82274; 83605; 85025; 85610; 85730; 86850; 86900; 86901; 93005; 96360; 96361; 99285; J7030; A4216

== ENCOUNTER 2020-06-06 11:39 | Emergency (ER) | payer MEDICARE, BC, SELFPAY ==
[2020-06-05 15:21] VITALS: BMI 52.4
[2020-06-06 11:40] VITALS: BP 141/86; PULSE 70; RESP 24; TEMP 36.3; O2SAT 100; BMI 51.3
--- NOTE | 2020-06-06 11:58 | EKG12_ITS ---
Test Reason : Blood Pressure : / mmHG Vent. Rate : 070 BPM Atrial Rate : 500 BPM P-R Int : 000 ms QRS Dur : 084 ms QT Int : 400 ms P-R-T Axes : 000 004 037 degrees QTc Int : 432 ms Normal sinus rhythm Low voltage QRS Abnormal ECG Confirmed by HEMA CRABTREE MD ([id number]), assistant editor ENOC MCGARRY ([id number]) on 06/10/2020 11:31:55 AM Referred By: DAREK Confirmed By:HEMA CRABTREE MD
--- NOTE | 2020-06-06 11:58 | CT_ITS ---
STUDY: CT ABDOMEN AND PELVIS WITHOUT CONTRAST REASON FOR EXAM: Male, 70 years old. GI BLEED. PRIOR GASTRIC BYPASS RADIATION DOSAGE (If Supplied By Facility): CTDIvol = ( 33.70 ) mGy, DLP = ( 2172.18 ) mGycm TECHNIQUE: Transaxial images were obtained from the dome of the diaphragm to the symphysis pubis without oral contrast, and without intravenous contrast. Sagittal and coronal images were reconstructed. Individualized dose optimization techniques were used for this CT. COMPARISON: None. FINDINGS: The visualized lung bases are unremarkable. The visualized portions of the heart are within normal limits. Normal liver. Normal gallbladder and extrahepatic biliary system. Normal spleen. Normal pancreas. Normal bilateral adrenal glands. Normal right kidney. Normal left kidney. Status post gastric surgery, likely gastric bypass. Normal small intestine. Normal colon. The appendix is visualized and appears normal. There is diffuse atherosclerotic calcification of the abdominal aorta, without a demonstrated aneurysm. Normal inferior vena cava. Normal retroperitoneum. Normal urinary bladder. There is a small umbilical hernia containing fat. Multiple hernias the midline of the anterior bowel wall superior to the umbilicus with one containing a loop of small bowel without bowel obstruction and the other containing a segment of transverse colon without obstruction. Normal osseous structures. CT/Abdomen/Pelvis without Cont IMPRESSION: No acute abnormality. Multiple hernias in the midline in the intra-abdominal wall containing small bowel and colon but without bowel obstruction. Electronically Signed: Juan Manuel Ball MD at 13:39 EDT Tel , Service support ,
--- NOTE | 2020-06-06 12:03 | ED.VIS.GEN ---
History of Present Illness Chief Complaint: GI Bleed Informant: Patient Onset: Yesterday Maximum Severity: Mild Narrative: The patient presents complaining of blood per rectum since yesterday initially indicates it was more reddish now is more darkish black to maroonish. 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 He has no history of GI bleeding. He has no coronavirus exposures. He indicates he was seen yesterday in the emergency department the exact etiology of all the above remains unclear he was told he required additional management and he was found to be stable for discharge home to follow-up outpatient providers. Since discharge he notes he has passed 3 large bowel movements of maroonish stool continues to have sense of weakness and he returns for reevaluation as instructed Past Medical History - Allergies and Home Meds Allergies/Adverse Reactions: Allergies No Known Allergies Allergy (Verified 06/06/20 11:39) Primary Care Physician: Jose Fung Chi, MD [Primary Care Provider] - Past Medical History: - Surgical History: - - Right upper lung lobectomy; gastric bypass. Smoking Status: Former smoker - Family History Maternal Family History: Reports: - - Patient does not know Paternal Family History: Reports: - - Patient does not know Review of Systems ROS: - Clues as above General: Denies: Chills, Fever, Sweats Eyes: Denies: Visual changes - bilaterally, Diplopia ENT: Denies: Rhinorrhea, Sore throat Cardiovascular: Denies: Chest pain, Palpitations Respiratory: Denies: Dyspnea, Cough, Dyspnea on exertion Gastrointestinal: Reports: Abdominal pain, Melena, Hematochezia. Denies: Nausea, Vomiting, Diarrhea Genitourinary: Denies: Dysuria, Hematuria, Frequency Musculoskeletal: Denies: Back pain, Extremity Pain Skin: Denies: Rash, Wounds Neurological: Denies: Headache, Weakness, Numbness Physical Exam Vital Signs/Narrative: Vital Signs Temp Pulse Resp BP Pulse Ox 06/06/20 11:40 97.3 F L 70 24 H 141/86 H 100 General: Well nourished, Well developed, No Acute Distress Head: Normocephalic, Atraumatic Eyes: Perrl, EOMI ENT: Moist mucous membranes, No rhinorrhea Neck: Supple, Nontender Cardiovascular: Regular rate, Regular rhythm, No murmurs Respiratory: No distress, CTA bilaterally, Chest nontender Abdomen: Soft, Nontender, Nondistended, Normal bowel sounds, - - Complains of a nonspecific sense of crampy abdominal pain he is a very large gentleman there is no rebound guarding organomegaly or gross abnormalities on physical exam Rectal: - - There is melanotic stool in the rectal vault nontender Back: Nontender, Normal Inspection Extremities: Nontender, No edema Skin: Normal color, No rash Neurological: Alert, Oriented x3, Cranial nerves II-XII grossly intact, Normal Strength, Normal Sensation Psychological: Normal affect, Normal Mood Diagnostic/Tx/Re-eval - Medical Decision Making His vital signs remained stable he did show me 3 pictures where he filled the commode with maroonish blackish stool given all the above screening labs ED management admission per hospitalist protocol ED screening evaluation is unremarkable hemoglobin 11.7 stable from earlier visit baseline hemoglobin around 13, his creatinine is 1.3 his baseline creatinine is around that level., He has had no bleeding his vital signs remained stable, we spoke with the on-call hospitalist who indicated we needed to talk to surgery to make sure they could consult and manage the patient, we spoke with the on-call surgeon who felt that the patient condition BMI should be transferred to a higher level of care facility Capable of caring for bariatric patients, spoke with patient who asked to be transferred to [facility] if possible, spoke with [facility] transfer line they have accepted him in transfer and are trying to coordinate his care to the appropriate bed Disposition transfer to [facility] Impression final GI bleed, history of right upper lobe resection, history of gastric bypass, ED Disposition - Plan for ED Patient: Referrals: Jose Fung Chi, MD [Primary Care Provider] -
[2020-06-06] MEDS: 0.9% Normal Saline 1,000 ML 125 ML IV ×2 (12:30→17:54)
[2020-06-06 12:41] LABS: Absolute Lymphocyte Count 2.13 X10^3/uL (0.83-4.51); Absolute Neutrophil Count 5.8 X10^3/uL (2.0-7.7); Basophil# 0.04 X10^3/uL; Basophil% 0.5 % (0-1); Eosinophil# 0.15 X10^3/uL; Eosinophils% 1.7 % (0-5); Hematocrit 36.4 % (40-54); Hemoglobin 11.7 g/dL (13.0-16.5); Lymphocyte # 2.13 X10^3/ul (4.0); Lymphocyte % 24.2 % (19-41); Mean Corp Hgb Conc 32.1 g/dL (32-36); Mean Corpuscular Hgb 31.2 pg (27.0-32.0); Mean Corpuscular Volume 97.1 fL (80-94); Mean Platelet Vol. 10.3 fl (6.2-12.0); Monocyte# 0.64 X10^3/uL; Monocyte% 7.3 % (0-10); NRBC Flagged by Analyzer 0 % (0-5); Neutrophil # 5.82 X10^3/uL (2.7-7.7); Neutrophil % 66.1 % (47-70); Platelet Count 201 K/mm3 (150-450); RBC Distribution Width CV 13.7 % (11.6-14.6); RBC Distribution Width SD 47.7 fl (35.1-43.9); Red Blood Count 3.75 M/mm3 (4.6-6.2); White Blood Count 8.8 K/mm3 (4.4-11.0)
[2020-06-06 12:55] LABS: Prothrombin Time (Protime)PT. 12.6 SECONDS (11.7-14.9)
[2020-06-06 13:01] LABS: ALB/GLOB Ratio 0.9 RATIO (0.9-2.4); AST(SGOT) 17 U/L (15-37); Alanine Aminotransfer ALT/SGPT 18 U/L (16-61); Albumin, Serum 3.2 g/dL (3.2-5.0); Alkaline Phosphatase 80 U/L (45-117); Anion Gap 4 (5-15); BUN 43 mg/dL (7-18); BUN/Creat Ratio 32.1 RATIO (10-20); Calcium,Total 8.5 mg/dL (8.5-10.1); Chloride 114 mmol/L (98-107); Creatinine, Serum 1.34 mg/dL (0.70-1.30); EST Glomerular Filtration Rate 56 mL/min (>60); Est Glom Filt Rate - Afr Amer 68 mL/min (>60); Estimated Creatinine Clearance 59.64 ml/min; Globulin 3.7 g/dL (2.2-4.2); Glucose 93 mg/dL (74-106); Lipase 115 U/L (73-393); Potassium 4.3 mmol/L (3.5-5.1); Protein, Total 6.9 g/dL (6.4-8.2); Sodium Level 142 mmol/L (136-145)
[2020-06-06 13:41] LABS: Bacteria 0 SEEN /hpf (None Seen); Mucous, Urine 0 SEEN /hpf (<or=2+); Red Blood Cells-Urine 0 SEEN /hpf (0-5); Squamous Epithelial Cells - UA 0 SEEN /hpf (0-5); White Blood Cells 0 SEEN /hpf (0-5)
[2020-06-06 13:47] LABS: Color, Urine Yellow (Yellow); Glucose, Dipstick Normal (Normal); Ketone-Dipstick Negative (Negative); Leukocyte Esterase-Dipstick Negative /ul (Negative); Nitrite-Dipstick Negative (Negative); Occult Blood-Urine Negative /ul (Negative); Protein-Dipstick Negative (Negative); Specific Gravity, Urine 1.015 (1.002-1.030); Urine Bilirubin Dipstick Negative (Negative); Urine Clarity Clear (Clear); Urine Urobilinogen Normal (Normal)
[2020-06-06 14:23] VITALS: BP 146/76; PULSE 71; RESP 16; TEMP 36.5; O2SAT 100
[2020-06-06 16:08] VITALS: BP 129/56; PULSE 63; RESP 19; O2SAT 100
--- NOTE | 2020-06-06 16:17 | ED.RN ---
PER BRYAN AT [facility] WE ARE STILL WAITING ON A BED TO OPEN UP
[2020-06-06 18:13] VITALS: BP 131/43; PULSE 61; RESP 23; O2SAT 100
[2020-06-06 19:30] VITALS: BP 131/43; PULSE 61; RESP 18; O2SAT 100
== END 2020-06-06 19:32 | disposition short-term general hospital (02) ==
PROVIDERS: Emergency Provider Emergency Medicine; PCP Family Medicine Geriatric Medicine
DX: K92.2 Gastrointestinal hemorrhage, unspecified (principal); Z98.84 Bariatric surgery status; Z87.891 Personal history of nicotine dependence
CPT/HCPCS: 74176; 80053; 81001; 83690; 84484; 85025; 85610; 93005; 96361; 96374; 96375; 99284; J7030; A4216; J2405

== ENCOUNTER → 2020-06-16 11:45 | Outpatient (CLI) | payer MEDICARE, BC, SELFPAY ==
[2020-06-06 11:40] VITALS: BMI 51.3
[2020-06-16 12:40] LABS: Absolute Lymphocyte Count 1.54 X10^3/uL (0.83-4.51); Basophil# 0.03 X10^3/uL; Basophil% 0.4 % (0-1); Eosinophil# 0.15 X10^3/uL; Hemoglobin 10.8 g/dL (13.0-16.5); Lymphocyte # 1.54 X10^3/ul (4.0); Lymphocyte % 20.8 % (19-41); Mean Corp Hgb Conc 32.7 g/dL (32-36); Mean Corpuscular Hgb 32.1 pg (27.0-32.0); Mean Corpuscular Volume 98.2 fL (80-94); Monocyte# 0.66 X10^3/uL; Monocyte% 8.9 % (0-10); NRBC Flagged by Analyzer 0.4 % (0-5); Neutrophil % 67.5 % (47-70); Platelet Count 232 K/mm3 (150-450); Red Blood Count 3.36 M/mm3 (4.6-6.2); White Blood Count 7.4 K/mm3 (4.4-11.0)
--- NOTE | 2020-06-16 12:40 | RAD_ITS ---
STUDY: X-RAY - ABDOMEN/PELVIS REASON FOR EXAM: Male, 70 years old. Patient states he had a camera inserted into him a week ago that he was supposed to pass in his stool and is concerned that it has not came out. He denies any abdomen pain TECHNIQUE: Single AP view of the abdomen / pelvis. COMPARISON: None. FINDINGS: Normal visualized lung bases. There is an unremarkable bowel gas pattern. Surgical clips are seen in the epigastric region. Normal soft tissue structures. Normal visualized osseous structures. RAD/Abdomen Single View IMPRESSION: No acute abnormality is seen. Electronically Signed: Michael Perez, at 13:19 EDT , Service support ,
[2020-06-16 13:29] LABS: AST(SGOT) 19 U/L (15-37); Alanine Aminotransfer ALT/SGPT 21 U/L (16-61); Albumin, Serum 3.3 g/dL (3.2-5.0); Alkaline Phosphatase 102 U/L (45-117); Anion Gap 7 (5-15); BUN 23 mg/dL (7-18); BUN/Creat Ratio 16.3 RATIO (10-20); Calcium,Total 8.4 mg/dL (8.5-10.1); Chloride 111 mmol/L (98-107); Creatinine, Serum 1.41 mg/dL (0.70-1.30); EST Glomerular Filtration Rate 53 mL/min (>60); Est Glom Filt Rate - Afr Amer 64 mL/min (>60); Globulin 3.3 g/dL (2.2-4.2); Glucose 72 mg/dL (74-106); PSA,Total - Annual Screen 1.33 ng/mL (0.00-4.00); Potassium 4.9 mmol/L (3.5-5.1); Protein, Total 6.6 g/dL (6.4-8.2); Sodium Level 145 mmol/L (136-145); Thyroid Stim Hormone (TSH) 3.96 uIU/mL (0.358-3.74)
[2020-06-16 13:34] LABS: Vitamin D,25 Hydroxy 27.8 ng/mL
== END ==
PROVIDERS: PCP Family Medicine Geriatric Medicine; Referring Provider Family Medicine Geriatric Medicine; Visit Provider Family Medicine Geriatric Medicine
DX: E55.9 Vitamin D deficiency, unspecified (principal); R53.83 Other fatigue; Z12.5 Encounter for screening for malignant neoplasm of prostate
CPT/HCPCS: 36415; 74018; 80053; 82306; 84153; 84443; 85025; G0103

== ENCOUNTER → 2020-07-15 10:34 | Outpatient (CLI) | payer MEDICARE, BC, SELFPAY ==
[2020-07-15 12:06] LABS: Hematocrit 36.2 % (40-54); Hemoglobin 11.3 g/dL (13.0-16.5)
== END ==
PROVIDERS: PCP Family Medicine Geriatric Medicine; Visit Provider Family Medicine Geriatric Medicine
DX: D50.9 Iron deficiency anemia, unspecified (principal)
CPT/HCPCS: 36415; 85014; 85018

== ENCOUNTER → 2020-08-05 13:18 | Outpatient (CLI) | payer MEDICARE, BC, SELFPAY | PROVIDERS: PCP Family Medicine Geriatric Medicine; Visit Provider Family Medicine Geriatric Medicine | DX: E03.9 Hypothyroidism, unspecified (principal) ==

== ENCOUNTER 2020-12-01 16:55 | Outpatient (RCR) | payer MEDICARE, BC, SELFPAY ==
[2020-12-01] MEDS: COVID-19 VACC, MRNA(PFIZER)/PF 30 MCG/0.3 ML SYRINGE IM (13:33)
[2020-12-22] MEDS: COVID-19 VACC, MRNA(PFIZER)/PF 30 MCG/0.3 ML SYRINGE IM (13:24)
== END 2021-03-02 23:59 ==
LOC: IMMUN 16:55
PROVIDERS: PCP Family Medicine Geriatric Medicine; Visit Provider Family Medicine
DX: Z23 Encounter for immunization (principal)
CPT/HCPCS: 0001A; 0002A; 91300

== ENCOUNTER → 2020-12-15 13:18 | Outpatient (CLI) | payer MEDICARE, BC, SELFPAY ==
[2020-12-15 14:25] LABS: Absolute Lymphocyte Count 1.79 X10^3/uL (0.83-4.51); Basophil# 0.06 X10^3/uL; Basophil% 0.9 % (0-1); Eosinophil# 0.13 X10^3/uL; Eosinophils% 1.9 % (0-5); Hematocrit 40.6 % (40-54); Hemoglobin 12.8 g/dL (13.0-16.5); Lymphocyte # 1.79 X10^3/ul (4.0); Lymphocyte % 26.7 % (19-41); Mean Corp Hgb Conc 31.5 g/dL (32-36); Mean Corpuscular Hgb 27.9 pg (27.0-32.0); Mean Corpuscular Volume 88.5 fL (80-94); Mean Platelet Vol. 10.2 fl (6.2-12.0); Monocyte# 0.67 X10^3/uL; NRBC Flagged by Analyzer 0 % (0-5); Neutrophil # 4.04 X10^3/uL (2.7-7.7); Neutrophil % 60.2 % (47-70); Platelet Count 203 K/mm3 (150-450); RBC Distribution Width SD 55.8 fl (35.1-43.9); Red Blood Count 4.59 M/mm3 (4.6-6.2); White Blood Count 6.7 K/mm3 (4.4-11.0)
[2020-12-15 14:42] LABS: Vitamin D,25 Hydroxy 14.1 ng/mL
[2020-12-15 14:50] LABS: ALB/GLOB Ratio 0.8 RATIO (0.9-2.4); AST(SGOT) 20 U/L (15-37); Alanine Aminotransfer ALT/SGPT 25 U/L (16-61); Albumin, Serum 3.3 g/dL (3.2-5.0); Alkaline Phosphatase 102 U/L (45-117); Anion Gap 5 (5-15); BUN 21 mg/dL (7-18); BUN/Creat Ratio 17.1 RATIO (10-20); Calcium,Total 8.3 mg/dL (8.5-10.1); Chloride 110 mmol/L (98-107); Creatinine, Serum 1.23 mg/dL (0.70-1.30); EST Glomerular Filtration Rate 62 mL/min (>60); Est Glom Filt Rate - Afr Amer 75 mL/min (>60); Globulin 4.2 g/dL (2.2-4.2); Glucose 123 mg/dL (74-106); Potassium 4.5 mmol/L (3.5-5.1); Protein, Total 7.5 g/dL (6.4-8.2); Sodium Level 140 mmol/L (136-145); Thyroid Stim Hormone (TSH) 2.25 uIU/mL (0.358-3.74)
== END ==
PROVIDERS: PCP Family Medicine Geriatric Medicine; Visit Provider Family Medicine Geriatric Medicine
DX: E55.9 Vitamin D deficiency, unspecified (principal); E03.9 Hypothyroidism, unspecified; R53.83 Other fatigue
CPT/HCPCS: 36415; 80053; 82306; 84443; 85025

== ENCOUNTER → 2021-06-17 14:44 | Outpatient (CLI) | payer MEDICARE, BC, SELFPAY ==
[2021-06-17 16:09] LABS: Absolute Lymphocyte Count 1.69 X10^3/uL (0.83-4.51); Absolute Neutrophil Count 7.1 X10^3/uL (2.0-7.7); Basophil# 0.04 X10^3/uL; Basophil% 0.4 % (0-1); Eosinophil# 0.08 X10^3/uL; Eosinophils% 0.8 % (0-5); Hematocrit 44.2 % (40-54); Hemoglobin 14.3 g/dL (13.0-16.5); Lymphocyte # 1.69 X10^3/ul (0.83-4.51); Lymphocyte % 17.4 % (19-41); Mean Corp Hgb Conc 32.4 g/dL (32-36); Mean Corpuscular Hgb 29.7 pg (27.0-32.0); Mean Corpuscular Volume 91.9 fL (80-94); Mean Platelet Vol. 10.6 fl (6.2-12.0); Monocyte# 0.75 X10^3/uL; Monocyte% 7.7 % (0-10); NRBC Flagged by Analyzer 0 % (0-5); Neutrophil % 73.3 % (47-70); Platelet Count 223 K/mm3 (150-450); RBC Distribution Width CV 14.7 % (11.6-14.6); Red Blood Count 4.81 M/mm3 (4.6-6.2); White Blood Count 9.7 K/mm3 (4.4-11.0)
[2021-06-17 16:27] LABS: Vitamin D,25 Hydroxy 33.2 ng/mL
[2021-06-17 16:42] LABS: ALB/GLOB Ratio 0.7 RATIO (0.9-2.4); AST(SGOT) 20 U/L (15-37); Alanine Aminotransfer ALT/SGPT 22 U/L (16-61); Albumin, Serum 3.1 g/dL (3.2-5.0); Alkaline Phosphatase 100 U/L (45-117); Anion Gap 5 (5-15); BUN 25 mg/dL (7-18); BUN/Creat Ratio 16.3 RATIO (10-20); Calcium,Total 8.7 mg/dL (8.5-10.1); Chloride 108 mmol/L (98-107); Creatinine, Serum 1.53 mg/dL (0.70-1.30); EST Glomerular Filtration Rate 48 mL/min (>60); Est Glom Filt Rate - Afr Amer 58 mL/min (>60); Globulin 4.5 g/dL (2.2-4.2); Glucose 92 mg/dL (74-106); Potassium 4.3 mmol/L (3.5-5.1); Protein, Total 7.6 g/dL (6.4-8.2); Sodium Level 138 mmol/L (136-145); Thyroid Stim Hormone (TSH) 2.21 uIU/mL (0.358-3.74)
== END ==
PROVIDERS: PCP Family Medicine Geriatric Medicine; Visit Provider Family Medicine Geriatric Medicine
DX: E55.9 Vitamin D deficiency, unspecified (principal); R53.83 Other fatigue
CPT/HCPCS: 36415; 80053; 82306; 84443; 85025

== ENCOUNTER 2021-12-03 12:42 | Outpatient (CLI) | payer MEDICARE, BC, SELFPAY ==
[2021-12-03 13:05] LABS: Absolute Lymphocyte Count 1.67 X10^3/uL (0.83-4.51); Basophil# 0.05 X10^3/uL; Basophil% 0.7 % (0-1); Eosinophil# 0.09 X10^3/uL; Eosinophils% 1.2 % (0-5); Hematocrit 40.9 % (40-54); Hemoglobin 13.5 g/dL (13.0-16.5); Lymphocyte # 1.67 X10^3/ul (0.83-4.51); Lymphocyte % 22.7 % (19-41); Mean Corpuscular Hgb 29.5 pg (27.0-32.0); Mean Corpuscular Volume 89.3 fL (80-94); Mean Platelet Vol. 9.5 fl (6.2-12.0); Monocyte# 0.55 X10^3/uL; Monocyte% 7.5 % (0-10); NRBC Flagged by Analyzer 0 % (0-5); Neutrophil # 4.98 X10^3/uL (2.7-7.7); Neutrophil % 67.5 % (47-70); Platelet Count 190 K/mm3 (150-450); RBC Distribution Width CV 14.7 % (11.6-14.6); RBC Distribution Width SD 46.9 fl (35.1-43.9); Red Blood Count 4.58 M/mm3 (4.6-6.2); White Blood Count 7.4 K/mm3 (4.4-11.0)
[2021-12-03 13:11] LABS: Erythrocyte Sedimentation Rate 17 mm/hr (0-20)
--- NOTE | 2021-12-03 13:15 | RAD_ITS ---
STUDY: X-RAY - RIGHT SHOULDER REASON FOR EXAM: Male, 71 years old. R SHOULDER PAIN TECHNIQUE: 4 view(s) of the shoulder. COMPARISON: None. FINDINGS: There is moderate degenerative arthrosis of the glenohumeral articulation. There is degenerative arthrosis of the acromioclavicular joint without inferior osseous spur formation. Normal acromion. Normal humeral head and visualized proximal humerus. The soft tissue structures are unremarkable. Normal visualized pulmonary apex, there are right rib deformities, likely related to previous surgery. RAD/Shoulder min 2 Views IMPRESSION: Degenerative arthrosis Electronically Signed: Geoff Moss MD at 15:57 EST ,
--- NOTE | 2021-12-03 13:15 | RAD_ITS ---
STUDY: X-RAY - LEFT SHOULDER REASON FOR EXAM: Male, 71 years old. L SHOULDER PAIN TECHNIQUE: 4 view(s) of the shoulder. COMPARISON: None. FINDINGS: There is moderate degenerative arthrosis of the glenohumeral articulation. There is degenerative arthrosis of the acromioclavicular joint without inferior osseous spur formation. Normal acromion. Normal humeral head and visualized proximal humerus. The soft tissue structures are unremarkable. Normal visualized pulmonary apex. RAD/Shoulder min 2 Views IMPRESSION: Degenerative arthrosis, no demonstrated fracture or suspicious osseous lesion Electronically Signed: Geoff Moss MD at 15:56 EST ,
--- NOTE | 2021-12-03 13:15 | RAD_ITS ---
STUDY: X-RAY - CERVICAL SPINE REASON FOR EXAM: Male, 71 years old. Neck pain and headache TECHNIQUE: 3 view(s) of the cervical spine were obtained. COMPARISON: None FINDINGS: Normal anterior atlantoaxial articulation. Normal odontoid process. Normal cervical lordosis. There is multi-level endplate spondylosis. Mild disc space narrowing throughout the cervical spine. The soft tissue structures are unremarkable. There is no demonstrated fracture of the cervical spine. RAD/Cerv Spine 2 or 3 Views IMPRESSION: Age consistent degenerative changes, no acute findings Electronically Signed: Geoff Moss MD at 13:40 EST ,
[2021-12-03 13:29] LABS: Anion Gap 3 (5-15); BUN 22 mg/dL (7-18); BUN/Creat Ratio 15.5 RATIO (10-20); CRP 3.44 mg/L (0.0-3.0); Calcium,Total 8.7 mg/dL (8.5-10.1); Chloride 107 mmol/L (98-107); Creatinine, Serum 1.42 mg/dL (0.70-1.30); EST Glomerular Filtration Rate 52 mL/min (>60); Est Glom Filt Rate - Afr Amer 63 mL/min (>60); Glucose 96 mg/dL (74-106); Potassium 4.7 mmol/L (3.5-5.1); Sodium Level 137 mmol/L (136-145)
== END 2021-12-03 23:59 | disposition home or self-care (01) ==
LOC: POLAB3 12:47 → RAD 13:03
PROVIDERS: PCP Family Medicine Geriatric Medicine; Referring Provider Family Medicine Geriatric Medicine; Visit Provider Family Medicine Geriatric Medicine
DX: M35.3 Polymyalgia rheumatica (principal); M54.2 Cervicalgia; M25.511 Pain in right shoulder; M25.512 Pain in left shoulder
CPT/HCPCS: 36415; 72040; 73030; 80048; 85025; 85652; 86140

== ENCOUNTER 2021-12-23 12:22 | Outpatient (CLI) | payer MEDICARE, BC, SELFPAY ==
[2021-12-23 13:20] LABS: Absolute Lymphocyte Count 1.75 X10^3/uL (0.83-4.51); Absolute Neutrophil Count 5.9 X10^3/uL (2.0-7.7); Basophil# 0.05 X10^3/uL; Basophil% 0.6 % (0-1); Eosinophil# 0.06 X10^3/uL; Eosinophils% 0.7 % (0-5); Hematocrit 43.3 % (40-54); Hemoglobin 14.7 g/dL (13.0-16.5); Lymphocyte # 1.75 X10^3/ul (0.83-4.51); Lymphocyte % 20.8 % (19-41); Mean Corp Hgb Conc 33.9 g/dL (32-36); Mean Corpuscular Volume 91.4 fL (80-94); Mean Platelet Vol. 10.3 fl (6.2-12.0); Monocyte# 0.62 X10^3/uL; Monocyte% 7.4 % (0-10); NRBC Flagged by Analyzer 0 % (0-5); Neutrophil % 70.3 % (47-70); Platelet Count 172 K/mm3 (150-450); RBC Distribution Width CV 15.1 % (11.6-14.6); RBC Distribution Width SD 48.5 fl (35.1-43.9); Red Blood Count 4.74 M/mm3 (4.6-6.2); White Blood Count 8.4 K/mm3 (4.4-11.0)
[2021-12-23 13:53] LABS: Vitamin D,25 Hydroxy 18.7 ng/mL
[2021-12-23 14:00] LABS: ALB/GLOB Ratio 0.9 RATIO (0.9-2.4); AST(SGOT) 16 U/L (15-37); Alanine Aminotransfer ALT/SGPT 22 U/L (16-61); Albumin, Serum 3.6 g/dL (3.2-5.0); Alkaline Phosphatase 96 U/L (45-117); Anion Gap 4 (5-15); BUN 28 mg/dL (7-18); BUN/Creat Ratio 21.5 RATIO (10-20); Calcium,Total 8.4 mg/dL (8.5-10.1); Chloride 106 mmol/L (98-107); EST Glomerular Filtration Rate 58 mL/min (>60); Est Glom Filt Rate - Afr Amer 70 mL/min (>60); Globulin 3.9 g/dL (2.2-4.2); Glucose 90 mg/dL (74-106); Potassium 4.6 mmol/L (3.5-5.1); Protein, Total 7.5 g/dL (6.4-8.2); Sodium Level 138 mmol/L (136-145); Thyroid Stim Hormone (TSH) 2.85 uIU/mL (0.358-3.74)
== END 2021-12-23 23:59 | disposition home or self-care (01) ==
LOC: LAB 12:24
PROVIDERS: PCP Family Medicine Geriatric Medicine; Referring Provider Family Medicine Geriatric Medicine; Visit Provider Family Medicine Geriatric Medicine
DX: E55.9 Vitamin D deficiency, unspecified (principal); R53.83 Other fatigue
CPT/HCPCS: 36415; 80053; 82306; 84443; 85025

== ENCOUNTER → 2022-03-21 | Outpatient (CLI) | payer MEDICARE, BC, SELFPAY | END | disposition home or self-care (01) | PROVIDERS: PCP Family Medicine Geriatric Medicine; Visit Provider Internal Medicine Pulmonary Disease | DX: Z00.00 Encounter for general adult medical examination without abnormal findings (principal) ==

== ENCOUNTER → 2022-04-11 | Outpatient (CLI) | payer MEDICARE, BC, SELFPAY ==
--- NOTE | 2022-04-11 11:02 | RAD_ITS ---
STUDY: X-RAY - RIGHT FOOT CLINICAL: Male, 72 years old. 3-4 day history of lateral foot pain. TECHNIQUE: 3 view(s) of the foot. COMPARISON: None. FINDINGS: There is a plantar calcaneal spur. Normal visualized subtalar, talonavicular, calcaneocuboid, tarsal and tarsometatarsal articulations. Normal metatarsi. There is degenerative arthrosis of the metatarsophalangeal joint of the hallux with a hallux valgus deformity. Normal tibial and fibular sesamoid bones. Normal interphalangeal joint of the great toe. Normal phalanges of the great toe. Normal second through fifth metatarsophalangeal joints. Normal interphalangeal joints and phalanges of the lesser toes. The soft tissue structures are unremarkable. RAD/Foot min 3 Views IMPRESSION: Plantar spur. Electronically Signed: Michael Perez MD at 13:36 EDT ,
== END | disposition home or self-care (01) ==
LOC: RAD 10:59
PROVIDERS: PCP Family Medicine Geriatric Medicine; Referring Provider Family Medicine Geriatric Medicine; Visit Provider Family Medicine Geriatric Medicine
DX: M79.671 Pain in right foot (principal)
CPT/HCPCS: 73630

== ENCOUNTER → 2022-08-17 | Outpatient (CLI) | payer MEDICARE, BC, SELFPAY ==
[2022-08-17 12:53] LABS: Absolute Lymphocyte Count 1.75 X10^3/uL (0.83-4.51); Absolute Neutrophil Count 7.9 X10^3/uL (2.0-7.7); Basophil# 0.03 X10^3/uL; Basophil% 0.3 % (0-1); Eosinophil# 0.05 X10^3/uL; Eosinophils% 0.5 % (0-5); Hematocrit 44.2 % (40-54); Hemoglobin 14.2 g/dL (13.0-16.5); Lymphocyte # 1.75 X10^3/ul (0.83-4.51); Lymphocyte % 16.6 % (19-41); Mean Corp Hgb Conc 32.1 g/dL (32-36); Mean Corpuscular Hgb 30.1 pg (27.0-32.0); Mean Corpuscular Volume 93.8 fL (80-94); Mean Platelet Vol. 10.3 fl (6.2-12.0); Monocyte% 6.7 % (0-10); NRBC Flagged by Analyzer 0 % (0-5); Neutrophil # 7.94 X10^3/uL (2.7-7.7); Neutrophil % 75.4 % (47-70); Platelet Count 224 K/mm3 (150-450); RBC Distribution Width CV 14.1 % (11.6-14.6); RBC Distribution Width SD 48.4 fl (35.1-43.9); Red Blood Count 4.71 M/mm3 (4.6-6.2); White Blood Count 10.5 K/mm3 (4.4-11.0)
[2022-08-17 13:19] LABS: Vitamin D,25 Hydroxy 25.3 ng/mL
[2022-08-17 13:39] LABS: ALB/GLOB Ratio 0.9 RATIO (0.9-2.4); AST(SGOT) 20 U/L (15-37); Alanine Aminotransfer ALT/SGPT 23 U/L (16-61); Albumin, Serum 3.5 g/dL (3.2-5.0); Alkaline Phosphatase 88 U/L (45-117); Anion Gap 8 (5-15); BUN 28 mg/dL (7-18); BUN/Creat Ratio 20.3 RATIO (10-20); Chloride 106 mmol/L (98-107); Creatinine, Serum 1.38 mg/dL (0.70-1.30); EST Glomerular Filtration Rate 54 mL/min (>60); Est Glom Filt Rate - Afr Amer 65 mL/min (>60); Globulin 4.1 g/dL (2.2-4.2); Glucose 91 mg/dL (74-106); Potassium 4.1 mmol/L (3.5-5.1); Protein, Total 7.6 g/dL (6.4-8.2); Sodium Level 139 mmol/L (136-145); Thyroid Stim Hormone (TSH) 2.25 uIU/mL (0.358-3.74)
== END | disposition home or self-care (01) ==
LOC: POLAB3 11:00
PROVIDERS: PCP Family Medicine Geriatric Medicine; Visit Provider Family Medicine Geriatric Medicine
DX: R53.83 Other fatigue (principal); E55.9 Vitamin D deficiency, unspecified
CPT/HCPCS: 36415; 80053; 82306; 84443; 85025

== ENCOUNTER → 2023-02-08 | Outpatient (CLI) | payer MEDICARE, BC, SELFPAY ==
[2023-02-08 13:37] LABS: Absolute Lymphocyte Count 1.75 X10^3/uL (0.83-4.51); Absolute Neutrophil Count 6.6 X10^3/uL (2.0-7.7); Basophil# 0.06 X10^3/uL; Basophil% 0.6 % (0-1); Eosinophil# 0.06 X10^3/uL; Eosinophils% 0.6 % (0-5); Hematocrit 43.9 % (40-54); Hemoglobin 14.9 g/dL (13.0-16.5); Lymphocyte # 1.75 X10^3/ul (0.83-4.51); Lymphocyte % 18.9 % (19-41); Mean Corp Hgb Conc 33.9 g/dL (32-36); Mean Corpuscular Hgb 31.9 pg (27.0-32.0); Mean Platelet Vol. 10.7 fl (6.2-12.0); Monocyte# 0.77 X10^3/uL; Monocyte% 8.3 % (0-10); NRBC Flagged by Analyzer 0 % (0-5); Neutrophil # 6.57 X10^3/uL (2.7-7.7); Neutrophil % 71.2 % (47-70); Platelet Count 208 K/mm3 (150-450); RBC Distribution Width CV 15.2 % (11.6-14.6); RBC Distribution Width SD 48.8 fl (35.1-43.9); Red Blood Count 4.67 M/mm3 (4.6-6.2); White Blood Count 9.3 K/mm3 (4.4-11.0)
[2023-02-08 13:53] LABS: ALB/GLOB Ratio 0.8 RATIO (0.9-2.4); AST(SGOT) 28 U/L (15-37); Alanine Aminotransfer ALT/SGPT 29 U/L (16-61); Albumin, Serum 3.5 g/dL (3.2-5.0); Alkaline Phosphatase 91 U/L (45-117); Anion Gap 6 (5-15); BUN 35 mg/dL (7-18); BUN/Creat Ratio 27.1 RATIO (10-20); Calcium,Total 9.3 mg/dL (8.5-10.1); Chloride 105 mmol/L (98-107); Creatinine, Serum 1.29 mg/dL (0.70-1.30); EST Glomerular Filtration Rate 58 mL/min (>60); Est Glom Filt Rate - Afr Amer 70 mL/min (>60); Globulin 4.4 g/dL (2.2-4.2); Glucose 83 mg/dL (74-106); Potassium 4.5 mmol/L (3.5-5.1); Protein, Total 7.9 g/dL (6.4-8.2); Sodium Level 134 mmol/L (136-145); Thyroid Stim Hormone (TSH) 3.27 uIU/mL (0.358-3.74)
[2023-02-08 14:19] LABS: Vitamin D,25 Hydroxy 29.3 ng/mL
== END | disposition home or self-care (01) ==
LOC: POLAB3 11:23
PROVIDERS: PCP Family Medicine Geriatric Medicine; Visit Provider Family Medicine Geriatric Medicine
DX: R53.83 Other fatigue (principal); E55.9 Vitamin D deficiency, unspecified
CPT/HCPCS: 36415; 80053; 82306; 84443; 85025

== ENCOUNTER → 2023-03-13 | Outpatient (CLI) | payer MEDICARE, BC, SELFPAY ==
--- NOTE | 2023-03-13 16:51 | RAD_ITS ---
EXAM: XR CERVICAL SPINE, 2 OR 3 VIEWS CLINICAL INDICATION: RIGHT SHOULDER PAIN/ NECK PAIN TECHNIQUE: Frontal and lateral views of the cervical spine. COMPARISON: No relevant prior studies available. FINDINGS: VERTEBRAE: There are small anterior osteophytes from C4 through C7. Preserved vertebral body height. No acute fracture. No spondylolisthesis. Preservation of the normal cervical lordosis. No significant facet arthropathy. DISC SPACES: There is disc space narrowing at C6-7. SOFT TISSUES: Unremarkable. No prevertebral soft tissue widening. LUNG APICES: Clear. RAD/Cerv Spine 2 or 3 Views IMPRESSION: No acute osseous abnormalities. There are mild degenerative changes with disc space narrowing and osteophyte formation. Electronically Signed: Rey Segundo MD at 16:04 EDT ,
--- NOTE | 2023-03-13 16:52 | RAD_ITS ---
EXAM: XR RIGHT SHOULDER COMPLETE, 2 OR MORE VIEWS CLINICAL INDICATION: RIGHT SHOULDER PAIN/ NECK PAIN TECHNIQUE: Two or more views of the right shoulder. COMPARISON: No relevant prior studies available. FINDINGS: BONES/JOINTS: Unremarkable. No acute fracture. No subluxation. Normal alignment. Preservation of the joint space. No sclerotic or destructive changes observed. SOFT TISSUES: Unremarkable. No soft tissue swelling or gas. No radiopaque foreign body. RAD/Shoulder min 2 Views IMPRESSION: Negative right shoulder x-rays. Electronically Signed: Rey Segundo MD at 17:30 EDT ,
== END | disposition home or self-care (01) ==
LOC: RAD 16:48
PROVIDERS: PCP Family Medicine Geriatric Medicine; Referring Provider Family Medicine Geriatric Medicine; Visit Provider Family Medicine Geriatric Medicine
DX: M25.511 Pain in right shoulder (principal); M54.2 Cervicalgia
CPT/HCPCS: 72040; 73030

== ENCOUNTER → 2023-05-11 | Outpatient (CLI) | payer MEDICARE, BC, SELFPAY ==
--- NOTE | 2023-05-11 11:38 | VDLE_ITS ---
Reason For Study: RLE Edema RIGHT LEFT GSV is normal. CFV is compressible, spontaneous, phasic, CFV is compressible, spontaneous, phasic, competent, and demonstrates normal competent and demonstrates normal augmentation. augmentation. FV is compressible, spontaneous, phasic, competent and demonstrates normal augmentation. POP V is compressible, spontaneous, phasic, competent and demonstrates normal augmentation. T/P Trunk is compressible. PTV is compressible. RT PerV is compressible. Procedure This is a venous duplex using B-mode, color flow and spectral Doppler. Exam performed in department. The exam was diagnostic. The study was technically difficult due to body habitus. A preliminary report was called and/or faxed to Dr. Fung's office. VL/Venous Duplex US, Unilateral Interpretation Summary Deep veins of the right lower extremity are patent and compressible segmentally . There is no evidence of right lower extremity deep vein thrombosis. Valvular competence linda ears intact within the proximal deep venous system on the right . The right great saphenous vein a ppears patent and compressible segmentally. The left common femoral vein is patent and compressib le . Ordering Physician: Jose Fung Chi Referring Physician: Jose Fung Chi Performed By: Chay Anderson RVT
== END | disposition home or self-care (01) ==
LOC: CVS 11:36
PROVIDERS: PCP Family Medicine Geriatric Medicine; Referring Provider Family Medicine Geriatric Medicine; Visit Provider Family Medicine Geriatric Medicine
DX: M79.89 Other specified soft tissue disorders (principal)
CPT/HCPCS: 93971

== ENCOUNTER → 2023-10-05 | Outpatient (CLI) | payer MEDICARE, BC, SELFPAY ==
--- OUTSIDE RECORDS SUMMARY | 2023-10-05 15:33 | XMS RPT_ITS | CCD ---
Author Name Unknown Address [address] [place] [address] Organization [facility] Results Test Name Value Interpretation Reference Range Facil ity Summary Purpose Family History No Family History Records FoundNo Family History Records Found Advance Directives No Advanced Directives Records FoundNo Advanced Directives Records Found Hospital Course Note HNO ID: [id number] Author: Susie Palmer Service: Hospital Medicine Author Type: Physician Type: Discharge Summary Filed: 06/12/2020 11:18 AM Note Text: DISCHARGE SUMMARY PATIENT NAME: Thomas Gonzalez ADMISSION DATE: 06/06/2020 DISCHARGE DATE: 06/12/2020 ATTENDING PHYSICIAN: Son Escalante MD Code Status: Not on file Highest Readmission Risk Score: 9 The 30 day readmissions risk score is derived from an internally validated risk model which evaluates patient level characteristics, utilization history, medication orders and lab results up until the day of discharge. Patients with a score of 40 or above are considered highest risk for readmission. Specific patient level drivers will be listed at the bottom of the summary. CONSULTING TEAMS DURING HOSPITALIZATION: gi Treatment Team: Attending Provider: Son Escalante MD Consulting: Hussain Hess Primary Service: Shady Bailon REASON FOR HOSPITALIZATION: GIB DIAGNOSIS: Principal Problem: Anemia Active Problems: Obesity, Class III, BMI (more content not included)... Additional Source Comments (unrecognized sect ion and content) No Status Records FoundNo Status Records Found INFORMATION SOURCE (unrecogn ized section and content) DATE CREATED AUTHOR AUTHOR'S FRANCESCO ATLANEY 06/19/2020 [facility] FOR RECORDS PERTAINING TO PATIENTS WHO ARE OR HAVE BEEN ENROLLED IN A CHEMICAL DEPENDENCY/SUBSTANCEABUSE PROGRAM, SOME INFORMATION MAY BE OMITTED. This clinical summary was aggregated from multiple sources. Caution should be exercised in using it in the provision of clinical care. This summary normalizes information from multiple sources, and as a consequence, information in this document may materially change the coding, format and clinical context of patient data. In addition, data may be omitted in some cases. CLINICAL DECISIONS SHOULD BE BASED ON THE PRIMARY CLINICAL RECORDS. [employer] [facility]. provides no warranty or guarantee of the accuracy or completeness of information in this document.
[2023-10-05 16:27] LABS: Absolute Lymphocyte Count 1.89 X10^3/uL (0.83-4.51); Absolute Neutrophil Count 6.5 X10^3/uL (2.0-7.7); Basophil# 0.05 X10^3/uL; Basophil% 0.5 % (0-1); Eosinophil# 0.06 X10^3/uL; Eosinophils% 0.7 % (0-5); Hematocrit 44.8 % (40-54); Hemoglobin 14.2 g/dL (13.0-16.5); Lymphocyte # 1.89 X10^3/ul (0.83-4.51); Lymphocyte % 20.6 % (19-41); Mean Corp Hgb Conc 31.7 g/dL (32-36); Mean Corpuscular Hgb 30.1 pg (27.0-32.0); Mean Corpuscular Volume 95.1 fL (80-94); Monocyte# 0.63 X10^3/uL; Monocyte% 6.9 % (0-10); NRBC Flagged by Analyzer 0 % (0-5); Neutrophil # 6.46 X10^3/uL (2.7-7.7); Neutrophil % 70.4 % (47-70); Platelet Count 221 K/mm3 (150-450); RBC Distribution Width CV 13.4 % (11.6-14.6); RBC Distribution Width SD 46.5 fl (35.1-43.9); Red Blood Count 4.71 M/mm3 (4.6-6.2); White Blood Count 9.2 K/mm3 (4.4-11.0)
[2023-10-05 16:42] LABS: Vitamin D,25 Hydroxy 23.1 ng/mL
[2023-10-05 16:56] LABS: ALB/GLOB Ratio 0.8 RATIO (0.9-2.4); AST(SGOT) 21 U/L (15-37); Alanine Aminotransfer ALT/SGPT 22 U/L (16-61); Albumin, Serum 3.3 g/dL (3.2-5.0); Alkaline Phosphatase 112 U/L (45-117); Anion Gap 6 (5-15); BUN 29 mg/dL (7-18); BUN/Creat Ratio 18.4 RATIO (10-20); Calcium,Total 8.3 mg/dL (8.5-10.1); Chloride 106 mmol/L (98-107); Creatinine, Serum 1.58 mg/dL (0.70-1.30); EST Glomerular Filtration Rate 46 mL/min (>60); Est Glom Filt Rate - Afr Amer 56 mL/min (>60); Globulin 4.3 g/dL (2.2-4.2); Glucose 90 mg/dL (74-106); Potassium 4.5 mmol/L (3.5-5.1); Protein, Total 7.6 g/dL (6.4-8.2); Sodium Level 137 mmol/L (136-145); Thyroid Stim Hormone (TSH) 2.41 uIU/mL (0.358-3.74)
== END | disposition home or self-care (01) ==
LOC: POLAB3 15:06
PROVIDERS: PCP Family Medicine Geriatric Medicine; Visit Provider Family Medicine Geriatric Medicine
DX: R53.83 Other fatigue (principal); E55.9 Vitamin D deficiency, unspecified
CPT/HCPCS: 36415; 80053; 82306; 84443; 85025

== ENCOUNTER → 2024-04-23 | Outpatient (CLI) | payer MEDICARE, BC, SELFPAY ==
[2024-04-23 13:53] LABS: Absolute Lymphocyte Count 1.81 X10^3/uL (0.83-4.51); Absolute Neutrophil Count 6.5 X10^3/uL (2.0-7.7); Basophil# 0.05 X10^3/uL; Basophil% 0.6 % (0-1); Eosinophil# 0.03 X10^3/uL; Eosinophils% 0.3 % (0-5); Hematocrit 41.8 % (40-54); Hemoglobin 13.6 g/dL (13.0-16.5); Lymphocyte # 1.81 X10^3/ul (0.83-4.51); Lymphocyte % 20.2 % (19-41); Mean Corp Hgb Conc 32.5 g/dL (32-36); Mean Corpuscular Hgb 29.6 pg (27.0-32.0); Mean Corpuscular Volume 91.1 fL (80-94); Mean Platelet Vol. 10.3 fl (6.2-12.0); Monocyte# 0.51 X10^3/uL; Monocyte% 5.7 % (0-10); NRBC Flagged by Analyzer 0 % (0-5); Neutrophil # 6.54 X10^3/uL (2.7-7.7); Neutrophil % 72.9 % (47-70); Platelet Count 225 K/mm3 (150-450); RBC Distribution Width SD 47.6 fl (35.1-43.9); Red Blood Count 4.59 M/mm3 (4.6-6.2)
[2024-04-23 14:17] LABS: Vitamin D,25 Hydroxy 33.4 ng/mL
[2024-04-23 14:29] LABS: ALB/GLOB Ratio 0.8 RATIO (0.9-2.4); AST(SGOT) 27 U/L (15-37); Alanine Aminotransfer ALT/SGPT 23 U/L (16-61); Albumin, Serum 3.2 g/dL (3.2-5.0); Alkaline Phosphatase 103 U/L (45-117); Anion Gap 5 (5-15); BUN 30 mg/dL (7-18); BUN/Creat Ratio 22.6 RATIO (10-20); Calcium,Total 8.9 mg/dL (8.5-10.1); Chloride 106 mmol/L (98-107); Creatinine, Serum 1.33 mg/dL (0.70-1.30); EST Glomerular Filtration Rate 56 mL/min (>60); Est Glom Filt Rate - Afr Amer 68 mL/min (>60); Glucose 117 mg/dL (74-106); Potassium 4.9 mmol/L (3.5-5.1); Protein, Total 7.2 g/dL (6.4-8.2); Sodium Level 136 mmol/L (136-145); Thyroid Stim Hormone (TSH) 2.48 uIU/mL (0.358-3.74)
== END | disposition home or self-care (01) ==
LOC: POLAB3 13:31
PROVIDERS: PCP Family Medicine Geriatric Medicine; Visit Provider Family Medicine Geriatric Medicine
DX: E55.9 Vitamin D deficiency, unspecified (principal); R53.83 Other fatigue
CPT/HCPCS: 36415; 80053; 82306; 84443; 85025

== ENCOUNTER 2024-05-08 19:32 | Emergency (ER) | payer MEDICARE, BC, SELFPAY ==
[2024-05-08 19:33] VITALS: BP 137/79; PULSE 64; RESP 16; TEMP 36.6; O2SAT 98
[2024-05-08 19:54] VITALS: O2SAT 98
--- NOTE | 2024-05-08 21:22 | CT_ITS ---
EXAM: CT CERVICAL SPINE WITHOUT INTRAVENOUS CONTRAST CLINICAL INDICATION: Trauma TECHNIQUE: Helically acquired images were obtained of the cervical spine without intravenous contrast. 2D reformatted images were reviewed. This CT exam was performed using one or more of the following dose reduction techniques: automated exposure control, adjustment of the mA and/or kV according to patient size, and/or use of iterative reconstruction technique. RADIATION DOSE: CTDIvol = 31.15 mGy, DLP = 717.62 mGy-cm COMPARISON: No relevant prior studies available. FINDINGS: VERTEBRAE: Anterior spondylosis at multiple levels with ligamentous ossifications. Mild posterior spondylosis at C5-C7. No fracture. No traumatic subluxation. No discrete lytic or blastic abnormality. Straightening of the usual lordotic curvature, no significant spondylolisthesis. Normal craniocervical junction and cervicothoracic junction. DISCS/SPINAL CANAL/NEURAL FORAMINA: Mild to moderate disc space narrowing at C4-T1. Moderate right 3-4 and left C6-7 neural foraminal stenosis. SOFT TISSUES: Unremarkable. No prevertebral soft tissue swelling. LYMPH NODES: Unremarkable. No cervical adenopathy. LUNG APICES: Unremarkable as visualized. Clear. CT/Spine Cervical without Contras IMPRESSION: No evidence of acute cervical spinal fracture or spondylolisthesis. No high-grade spinal stenosis. Multilevel degenerative changes. Electronically Signed: Vero Sagastume MD at 23:50 EDT ,
--- NOTE | 2024-05-08 21:22 | CT_ITS ---
EXAM: CT HEAD WITHOUT INTRAVENOUS CONTRAST CLINICAL INDICATION: Trauma TECHNIQUE: Multiple axial images were obtained of the head without intravenous contrast. This CT exam was performed using one or more of the following dose reduction techniques: automated exposure control, adjustment of the mA and/or kV according to patient size, and/or use of iterative reconstruction technique. RADIATION DOSE: CTDIvol = 44.99 mGy, DLP = 812.98 mGy-cm. COMPARISON: No relevant prior studies available. FINDINGS: BRAIN AND EXTRA-AXIAL SPACES: Unremarkable. No intra- or extra-axial hemorrhage. No evidence of acute infarct. No intracranial mass or mass effect. There is preservation of the kuhn/white matter interface. Posterior fossa structures are unremarkable. Ventricles are appropriate for age. No hydrocephalus. Basal cisterns are patent. BONES/JOINTS: Unremarkable. No discrete lytic or blastic abnormalities. SINUSES: Unremarkable as visualized. Clear. MASTOID AIR CELLS: Unremarkable. Clear. ORBITS: Visualized globes, extraocular muscles, optic nerves and retrobulbar fat appear unremarkable. CT/Brain/Head without Contrast IMPRESSION: Negative head/brain CT without intravenous contrast. Electronically Signed: Vero Sagastume MD at 23:24 EDT ,
--- NOTE | 2024-05-08 21:22 | CT_ITS ---
EXAM: CT CHEST, ABDOMEN AND PELVIS WITH INTRAVENOUS CONTRAST CLINICAL INDICATION: fall right sided rib pain and abdominal pain -- TRAUMA ONLY: IV Contrast. Dont wait for creatinine TECHNIQUE: Helically acquired images were obtained of the chest, abdomen and pelvis with intravenous contrast. This CT exam was performed using one or more of the following dose reduction techniques: automated exposure control, adjustment of the mA and/or kV according to patient size, and/or use of iterative reconstruction technique. CONTRAST: IV 100mL [id number] RADIATION DOSE: CTDIvol = 54.43 mGy, DLP = 3569.28 mGy-cm COMPARISON: No relevant prior studies available. FINDINGS: CHEST: LUNGS AND PLEURAL SPACES: Right lobectomy, absent segments of right ribs, surgical clips in the right hilum. No evidence of suspicious pulmonary nodules or infiltrates. Scattered calcified right pleural plaques. Mild calcifications in proximal left anterior descending coronary artery. No pneumothorax. HEART: Unremarkable. Heart size is normal. No pericardial effusion. MEDIASTINUM: Unremarkable. No mediastinal or hilar adenopathy. Esophagus is unremarkable. No hiatal hernia. THYROID: Unremarkable. No thyroid lesions. ABDOMEN: LIVER: Unremarkable. Homogeneous. No focal mass. GALLBLADDER AND BILE DUCTS: Unremarkable. No calcified gallstones. No gallbladder distention or wall edema. No intra- or extrahepatic biliary ductal dilation. PANCREAS: Fatty infiltrated proximal and mid pancreas. No focal cystic or solid mass. SPLEEN: Unremarkable. Normal size without focal cystic or solid mass. ADRENALS: Unremarkable. No nodules. KIDNEYS AND URETERS: Multiple small suspected parapelvic renal cysts. No hydronephrosis or ureter stone. Almost collapsed urinary bladder. STOMACH AND BOWEL: Wide ventral upper abdominal midline dehiscence at the linea alba, roughly 9.5 cm transverse involving a length of over 10.8 cm craniocaudal, with bulging of gas-filled nonobstructed transverse colon segment into the hernia-dehiscence defect, no obstruction. Postoperative changes of the stomach consistent gastrojejunostomy. Small bowel anastomosis in the left midabdomen. Mildly high position of the cecum. Moderate gas in most of the proximal half of the colon, mild gas and stool in the descending colon and rectosigmoid. Mild sigmoid diverticulosis, no evidence of acute diverticulitis. PELVIS: APPENDIX: The appendix is not clearly seen. No obvious pericecal inflammation. BLADDER: Unremarkable. REPRODUCTIVE: Mild prostatomegaly, 5.8 cm transverse. CHEST, ABDOMEN and PELVIS: INTRAPERITONEAL SPACE: Unremarkable. No ascites or other fluid collection. No free air. BONES/JOINTS: Mild degenerative changes of the lumbar spine, vacuum disc, spondylosis, no high-grade spinal stenosis. No suspicious lytic or blastic abnormality. SOFT TISSUES: Mild fat-containing left inguinal hernia, not fully included but no obvious inflammatory changes. VASCULATURE: Atherosclerotic changes of aortoiliac vessels and calcifications. No high-grade arterial stenosis. Aorta is non-dilated. No aortic dissection. No obvious central pulmonary embolism although this study was not performed with the pulmonary embolism protocol. LYMPH NODES: Unremarkable. No enlarged lymph nodes. CT/CT Chest, Abd, Pel w/Contrast IMPRESSION: 1. No visible acute bone changes. Absent segments of right fourth and fifth ribs appear postoperative due to right lobectomy. No herniated lung. 2. Upper abdominal midline wide dehiscence at the linea alba with protruding nonobstructed transverse colon, and at least small fat-containing left inguinal and umbilical hernias. No bowel obstruction or strangulation. 3. Cystic focus in right iliopsoas anterior to the right hip joint may be extension of bursal or other chronic fluid collection. 4. Gastric bypass. Nonvisualized appendix. Mildly prominent small bowel and colon contents. Minimal distal diverticulosis. Electronically Signed: Vero Sagastume MD at 23:39 EDT ,
[2024-05-08] MEDS: Diphth,Pertuss(Acell),Tet Vac 0.5 ML Vial IM (21:34)
[2024-05-08] MEDS: 0.9% Normal Saline (1000mL) 1,000 ML 999 ML IV (21:34)
[2024-05-08] MEDS: Ondansetron 4 MG/2 ML Vial IV (21:35)
[2024-05-08] MEDS: Morphine 4 MG/ML Syringe IV ×2 (21:35→23:33)
[2024-05-08 21:38] LABS: Absolute Lymphocyte Count 1.62 X10^3/uL (0.83-4.51); Absolute Neutrophil Count 6.4 X10^3/uL (2.0-7.7); Basophil# 0.05 X10^3/uL; Basophil% 0.6 % (0-1); Eosinophil# 0.07 X10^3/uL; Eosinophils% 0.8 % (0-5); Hematocrit 40.3 % (40-54); Hemoglobin 13.3 g/dL (13.0-16.5); Lymphocyte # 1.62 X10^3/ul (0.83-4.51); Lymphocyte % 18.2 % (19-41); Mean Corpuscular Hgb 31.1 pg (27.0-32.0); Mean Corpuscular Volume 94.2 fL (80-94); Mean Platelet Vol. 10.5 fl (6.2-12.0); Monocyte# 0.77 X10^3/uL; Monocyte% 8.6 % (0-10); NRBC Flagged by Analyzer 0 % (0-5); Neutrophil # 6.38 X10^3/uL (2.7-7.7); Neutrophil % 71.5 % (47-70); Platelet Count 198 K/mm3 (150-450); RBC Distribution Width CV 15.1 % (11.6-14.6); RBC Distribution Width SD 48.9 fl (35.1-43.9); Red Blood Count 4.28 M/mm3 (4.6-6.2); White Blood Count 8.9 K/mm3 (4.4-11.0)
[2024-05-08 21:44] VITALS: BP 155/71; PULSE 53; RESP 18; O2SAT 100
[2024-05-08 21:58] LABS: AST(SGOT) 22 U/L (15-37); Alanine Aminotransfer ALT/SGPT 22 U/L (16-61); Albumin, Serum 3.3 g/dL (3.2-5.0); Alkaline Phosphatase 112 U/L (45-117); Anion Gap 5 (5-15); BUN 30 mg/dL (7-18); BUN/Creat Ratio 20.8 RATIO (10-20); Bilirubin, Direct 0.14 mg/dL (0.00-0.30); Calcium,Total 8.6 mg/dL (8.5-10.1); Chloride 111 mmol/L (98-107); Creatinine, Serum 1.44 mg/dL (0.70-1.30); EST Glomerular Filtration Rate 51 mL/min (>60); Est Glom Filt Rate - Afr Amer 62 mL/min (>60); Globulin 3.5 g/dL (2.2-4.2); Glucose 101 mg/dL (74-106); Potassium 4.3 mmol/L (3.5-5.1); Protein, Total 6.8 g/dL (6.4-8.2); Sodium Level 139 mmol/L (136-145)
--- NOTE | 2024-05-08 22:00 | RAD_ITS ---
EXAM: XR RIGHT HIP WITH PELVIS , 3 VIEWS CLINICAL INDICATION: pain fall TECHNIQUE: Two views of the right hip with AP pelvis. COMPARISON: No relevant prior studies available. FINDINGS: BONES/JOINTS: Unremarkable. No displaced fracture. No destructive or sclerotic lesions. Note that overlapping bowel shadows may however obscure fine detail. Sacroiliac joint is unremarkable. No widening of the pubic symphysis. The articular structures are unremarkable. SOFT TISSUES: Unremarkable. No soft tissue swelling or gas. RAD/HIP, UNI W/ Pelvis 2-3 Views IMPRESSION: No evidence of displaced pelvic or hip fracture. Electronically Signed: Vero Sagastume MD at 23:56 EDT ,
--- NOTE | 2024-05-08 22:00 | RAD_ITS ---
EXAM: XR RIGHT SHOULDER COMPLETE, 2 OR MORE VIEWS CLINICAL INDICATION: pain fall TECHNIQUE: Two or more views of the right shoulder. COMPARISON: March 13, 2023. FINDINGS: BONES/JOINTS: Similar altered shape of the right humeral head and inferior hypertrophic changes at the prominent ventricular joint compared to prior exam similar absence of the right fifth rib segment. No acute fracture. No subluxation. Normal alignment. No sclerotic or destructive changes observed. SOFT TISSUES: Unremarkable. No soft tissue swelling or gas. No radiopaque foreign body. RAD/Shoulder min 2 Views IMPRESSION: No acute findings. Multifocal degenerative changes. Electronically Signed: Vero Sagastume MD at 0:00 EDT ,
--- NOTE | 2024-05-08 22:00 | RAD_ITS ---
EXAM: XR RIGHT KNEE, 3 VIEWS CLINICAL INDICATION: fall pain TECHNIQUE: Three views of the right knee. COMPARISON: No relevant prior studies available. FINDINGS: BONES/JOINTS: Moderate narrowing of the medial joint prominent on the frontal view, with mild periarticular osteophytes at the medial distal femur. No acute fracture. No subluxation. Normal alignment. No sclerotic or destructive changes observed. SOFT TISSUES: Unremarkable. No soft tissue swelling or gas. No radiopaque foreign body. VASCULATURE: Phleboliths in the medial proximal calf. RAD/Knee 3 Views IMPRESSION: No visible fracture or joint effusion. Degenerative joint changes. Electronically Signed: Vero Sagastume MD at 23:52 EDT ,
[2024-05-08 23:00] VITALS: BP 130/88; PULSE 51; RESP 19; O2SAT 99
[2024-05-08 23:00] LABS: Red Blood Cells-Urine 0 SEEN /hpf (0-5); Squamous Epithelial Cells - UA 0 SEEN /hpf (0-5); White Blood Cells 0 SEEN /hpf (0-5)
[2024-05-08 23:01] LABS: Color, Urine Yellow (Yellow); Glucose, Dipstick Normal (Normal); Ketone-Dipstick Negative (Negative); Leukocyte Esterase-Dipstick Negative /ul (Negative); Nitrite-Dipstick Negative (Negative); Occult Blood-Urine Negative /ul (Negative); Protein-Dipstick Negative (Negative); Specific Gravity, Urine 1.015 (1.002-1.030); Urine Bilirubin Dipstick Negative (Negative); Urine Clarity Clear (Clear); Urine Urobilinogen Normal (Normal)
[2024-05-08 23:07] LABS: Bacteria RARE /hpf (None Seen); Mucous, Urine RARE /hpf (<or=2+)
--- NOTE | 2024-05-08 23:54 | EDS_ITS ---
HPI History of Present Illness Chief Complaint: Fall Narrative Narrative: Patient is a 74-year-old male with a past medical history of hyperlipidemia, emphysema, osteoarthritis history of gastric bypass surgery who presents to the emergency department chief complaint of right shoulder pain abdominal pain after a fall around 11 AM today. 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 He states that he did not hit his head he states that he broke his fall with his right arm he did not pass out he did not lose consciousness remembers the entire event. Patient denies any blood thinning medication. He states that he did attempt take some Advil at home without symptomatic relief prompting him to come here for evaluation management. Patient states that he is unsure when his last tetanus shot was. [facility] Medical History Back pain Osteoarthritis Emphysema lung Hyperlipidemia Home Medications ?Medication ?Instructions ?Recorded ?Last Taken ?Type albuterol sulfate 90 mcg/actuation inhalation 06/24/21 Unknown History aerosol inhaler fluticasone fur. 100 mcg-umeclid ea inhalation 06/24/21 Unknown History 62.5 mcg-vilant 25 mcg inhalat.powder levothyroxine 25 mcg tablet ea PO 06/24/21 Unknown History montelukast 10 mg tablet 10 mg PO DAILY 06/24/21 Unknown History (Singulair) pravastatin 40 mg tablet ea PO 06/24/21 Unknown History Allergy/AdvReac Type Severity Reaction Status Date / Time No Known Allergies Allergy Verified 05/08/24 19:33 Surgical History History of gastric bypass History of colonoscopy History of lung surgery Social History Smoking Status: Former smoker ROS ROS ED ROS Narrative Constitutional: Denies any headaches, lightheadedness, dizziness, fevers, chills Eyes: Denies double vision blurry vision change in vision Cardiovascular: Denies chest pain or palpitations Respiratory: Denies coughing wheezing shortness of breath Abdomen: Complains of abdominal pain as noted above denies nausea vomiting diarrhea : Denies any pain phonation, hematuria, polyuria Neurological: Denies any numbness, weakness, tingling Musculoskeletal: Complains of right-sided rib pain and right shoulder pain as noted above Skin: Complains of abrasions noted to his knee and arm from the fall EXAM Physical Exam Narrative Exam Narrative: General: Patient was lying in bed rest comfortably did not appear to be acute distress Head: Atraumatic, normocephalic Eyes: PERRL bilaterally, EOMI bilaterally, no conjunctival injection noted Neck: Soft, supple, trachea midline, no midline tenderness palpation the midline cervical spine, patient has full range of motion of his neck no pain elicited Cardiovascular: Regular rate and rhythm no murmurs gallops rubs noted Respiratory: Clear to auscultation bilaterally no rales rhonchi or wheeze noted Abdomen: Soft, patient has a hernia noted in the midline of his abdomen is soft no overlying skin changes noted diffuse tenderness to palpation on exam no rebound or guarding noted Musculoskeletal: Patient had some tenderness palpation and attempted range of motion of his right knee, as well as some tenderness to palpation of his right shoulder. All other bony prominences palpated and joints taken through full range of motion no pain elicited Extremities: +4/5 strength noted in the bilateral upper and lower extremities, radial pulses +2/4 in the bilateral upper extremities Neurological: Patient was following commands knew that he was at [facility] year is 2023 Skin: Warm, dry, patient superficial abrasion with no active bleeding noted over his right knee as well as his right elbow Const Vital Signs: 05/08/24 19:33 05/08/24 19:54 05/08/24 21:44 Temperature 97.9 F Temperature Source Temporal Pulse Rate 64 53 L Respiratory Rate 16 18 Respiratory Effort Normal Short of Breath Respiratory Depth Normal Respiratory Pattern Normal Blood Pressure 137/79 H 155/71 H Blood Pressure Mean 98 99 Pulse Ox 98 98 100 Oxygen Delivery Method Room Air Room Air Room Air 05/08/24 23:00 Temperature Temperature Source Pulse Rate 51 L Respiratory Rate 19 H Respiratory Effort Respiratory Depth Respiratory Pattern Blood Pressure 130/88 H Blood Pressure Mean 102 Pulse Ox 99 Oxygen Delivery Method Room Air MDM MDM MDM Narrative Medical decision making narrative: Patient is a 74-year-old male who presents to the emergency department after mechanical fall with a chief complaint of abdominal pain and right shoulder and right sided rib pain. Patient will have a workup performed here on the d ifferential diagnose includes but not limited to intra-abdominal bleeding, small bowel obstruction, proximal humerus fracture, rib fractures. Once workup is obtained and reviewed he will be reevaluated. Patient be IV fluids, morphine and Zofran. Once again the patient noted that he simply tripped over his sandal he denied having chest pain shortness of breath lightheadedness or dizziness prior to the fall. Patient CBC Was reviewed and was largely unremarkable no evidence of leukocytosis white blood count normal at 8.9, hemoglobin stable 13.3, platelet count normal at 198. Patient's sodium was noted to be normal at 139, potassium normal at 4.3, creatinine was around his baseline at 1.44 according to previous blood draws. Patient AST and ALT were normal at 22 and 22 respectively. Parvin ent's urinalysis did not reveal any evidence of infection. Patient's x-rays and CT scans are still pending at this point time therefore case was signed out to oncoming provider to make ultimate disposition and follow-up on imaging results. See their note for ultimate disposition details Lab Data Labs: Laboratory Results - last 24 hr 05/08/24 05/08/24 19:59 22:54 WBC 8.9 RBC 4.28 L Hgb 13.3 Hct 40.3 MCV 94.2 H MCH 31.1 MCHC 33.0 RDW Std Deviation 48.9 H RDW Coeff of Kellie 15.1 H Plt Count 198 MPV 10.5 Immature Gran % (Auto) 0.300 Neut % (Auto) 71.5 H Lymph % (Auto) 18.2 L [place] % (Auto) 8.6 Eos % (Auto) 0.8 Baso % (Auto) 0.6 Absolute Neuts (auto) 6.4 Absolute Lymphs (auto) 1.62 Nucleated RBC % 0 Sodium 139 Potassium 4.3 Chloride 111 H Carbon Dioxide 23.0 Anion Gap 5 BUN 30 H Creatinine 1.44 H Est GFR (MDRD) Af Amer 62 Est GFR (MDRD) Non-Af 51 L BUN/Creatinine Ratio 20.8 H Glucose 101 Calcium 8.6 Total Bilirubin 0.80 Direct Bilirubin 0.14 AST 22 ALT 22 Alkaline Phosphatase 112 Total Protein 6.8 Albumin 3.3 Globulin 3.5 Urine Color Yellow Urine Clarity Clear Urine pH 6.0 Ur Specific Baxter 1.015 Urine Protein Negative Urine Glucose (UA) Normal Urine Ketones Negative Urine Occult Blood Negative Urine Nitrite Negative Urine Bilirubin Negative Urine Urobilinogen Normal Ur Leukocyte Esterase Negative Urine RBC 0 SEEN Urine WBC 0 SEEN Ur Squamous Epith Cells 0 SEEN Urine Bacteria RARE Urine Mucus RARE Radiography Diagnostic Testing: Clinical Impression(s) from Imaging Studies Brain CT 05/08/24 21:22 IMPRESSION: Negative head/brain CT without intravenous contrast. Electronically Signed: Vero Sagastume MD at 23:24 EDT Reading Location ID and State: [facility] / [place] Tel , Service support , Cervical Spine CT 05/08/24 21:22 IMPRESSION: No evidence of acute cervical spinal fracture or spondylolisthesis. No high-grade spinal stenosis. Multilevel degenerative changes. Electronically Signed: Vero Sagastume MD at 23:50 EDT Reading Location ID and State: [facility] / [place] Tel , Service support , Chest/Abdomen/Pelvis CT 05/08/24 21:22 IMPRESSION: 1. No visible acute bone changes. Absent segments of right fourth and fifth ribs appear postoperative due to right lobectomy. No herniated lung. 2. Upper abdominal midline wide dehiscence at the linea alba with protruding nonobstructed transverse colon, and at least small fat-containing left inguinal and umbilical hernias. No bowel obstruction or strangulation. 3. Cystic focus in right iliopsoas anterior to the right hip joint may be extension of bursal or other chronic fluid collection. 4. Gastric bypass. Nonvisualized appendix. Mildly prominent small bowel and colon contents. Minimal distal diverticulosis. Electronically Signed: Vero Sagastume MD at 23:39 EDT Reading Location ID and State: [facility] / [place] Tel , Service support , Knee X-Ray 05/08/24 22:00 IMPRESSION: No visible fracture or joint effusion. Degenerative joint changes. Electronically Signed: Vero Sagastume MD at 23:52 EDT Reading Location ID and State: [facility] / [place] Tel , Service support , Discharge Plan Triage Chief Complaint: Fall Other Complaint: Abd Pain ED Provider: Patricio Ayala Dx/Rx/DC Orders Clinical Impression: Fall Prescriptions: No Action Kesha Andrewsta 100-62.5-25 mcg blister with device inhalation Patient Comments: TAKE 1 PUFF INHALED ONCE PER DAY FOR 90 DAYS levothyroxine 25 mcg tablet PO Patient Comments: TAKE 1 TABLET ORALLY ONCE PER DAY FOR 30 DAYS pravastatin 40 mg tablet PO Patient Comments: TAKE 1 TABLET ORALLY ONCE PER DAY FOR 90 DAYS TAKE AT BEDTIME albuterol sulfate 90 mcg/actuation HFA aerosol inhaler inhalation montelukast [Singulair] 10 mg tablet 10 mg PO DAILY Primary Care Provider: Jose Fung Chi Referrals: Jose Fung Chi, MD [Primary Care Provider] - Print Language: Swedish
[2024-05-09] MEDS: oxyCODONE 5 MG Tablet 10 MG PO (00:39)
[2024-05-09 00:50] VITALS: BP 117/69; PULSE 70; RESP 18; TEMP 36.7; O2SAT 95
== END 2024-05-09 00:52 | disposition home or self-care (01) ==
PROVIDERS: Emergency Provider Emergency Medicine; PCP Family Medicine Geriatric Medicine; Visit Provider Emergency Medicine
DX: M25.511 Pain in right shoulder (principal); Z87.891 Personal history of nicotine dependence; W19.XXXA Unspecified fall, initial encounter
CPT/HCPCS: 70450; 71260; 72125; 73030; 73502; 73562; 74177; 80048; 80076; 81001; 85025; 90715; 93005; 96361; 96374; 96375; 96376; 99284; J7030; Q9967; A4216; J2405

== ENCOUNTER → 2024-06-19 | Outpatient (CLI) | payer MEDICARE, BC, SELFPAY ==
[2024-06-19 12:25] LABS: Absolute Lymphocyte Count 1.23 X10^3/uL (0.83-4.51); Absolute Neutrophil Count 9.7 X10^3/uL (2.0-7.7); Basophil# 0.05 X10^3/uL; Basophil% 0.4 % (0-1); Eosinophil# 0.09 X10^3/uL; Eosinophils% 0.7 % (0-5); Hematocrit 43.4 % (40-54); Hemoglobin 13.8 g/dL (13.0-16.5); Lymphocyte # 1.23 X10^3/ul (0.83-4.51); Lymphocyte % 10.2 % (19-41); Mean Corp Hgb Conc 31.8 g/dL (32-36); Mean Corpuscular Hgb 29.9 pg (27.0-32.0); Mean Corpuscular Volume 93.9 fL (80-94); Mean Platelet Vol. 9.7 fl (6.2-12.0); Monocyte# 0.96 X10^3/uL; NRBC Flagged by Analyzer 0 % (0-5); Neutrophil # 9.68 X10^3/uL (2.7-7.7); Neutrophil % 80.2 % (47-70); Platelet Count 244 K/mm3 (150-450); RBC Distribution Width CV 14.7 % (11.6-14.6); RBC Distribution Width SD 50.4 fl (35.1-43.9); Red Blood Count 4.62 M/mm3 (4.6-6.2); White Blood Count 12.1 K/mm3 (4.4-11.0)
[2024-06-19 13:03] LABS: ALB/GLOB Ratio 0.8 RATIO (0.9-2.4); AST(SGOT) 17 U/L (15-37); Alanine Aminotransfer ALT/SGPT 23 U/L (16-61); Albumin, Serum 2.9 g/dL (3.2-5.0); Alkaline Phosphatase 103 U/L (45-117); Anion Gap 4 (5-15); BUN 20 mg/dL (7-18); Calcium,Total 8.9 mg/dL (8.5-10.1); Chloride 111 mmol/L (98-107); Creatinine, Serum 1.33 mg/dL (0.70-1.30); EST Glomerular Filtration Rate 56 mL/min (>60); Est Glom Filt Rate - Afr Amer 68 mL/min (>60); Globulin 3.6 g/dL (2.2-4.2); Glucose 93 mg/dL (74-106); Potassium 4.6 mmol/L (3.5-5.1); Protein, Total 6.5 g/dL (6.4-8.2); Sodium Level 139 mmol/L (136-145)
== END | disposition home or self-care (01) ==
LOC: POLAB3 12:01
PROVIDERS: PCP Family Medicine Geriatric Medicine; Visit Provider Family Medicine Geriatric Medicine
DX: N39.0 Urinary tract infection, site not specified (principal); R53.83 Other fatigue
CPT/HCPCS: 36415; 80053; 85025; 87086

== ENCOUNTER → 2024-06-19 | Outpatient (CLI) | payer MEDICARE, BC, SELFPAY ==
--- NOTE | 2024-06-19 12:16 | CT_ITS ---
STUDY: CT ABDOMEN AND PELVIS WITH CONTRAST REASON FOR EXAM: Male, 74 years old. PAIN RADIATION DOSAGE (If Supplied By Facility): CTDIvol = ( 28.41 ) mGy, DLP = ( 1992.78 ) mGycm TECHNIQUE: Transaxial images were obtained from the dome of the diaphragm to the symphysis pubis without oral contrast. Oral and amp; IV Gastrografin and amp; 75mL Isovue-370 was administered. Sagittal and coronal images were reconstructed. Individualized dose optimization techniques were used for this CT. COMPARISON: None. FINDINGS: Pleural calcifications along the right lung base. The visualized portions of the heart are within normal limits. Normal liver. Distended gallbladder. Borderline prominence of the extrahepatic biliary system. Normal spleen. Normal pancreas. Normal bilateral adrenal glands. Normal right kidney. Normal left kidney. Prior surgery of the stomach. Normal small intestine. Possible mild wall thickening of the colon. Mesenteric stranding adjacent to the splenic flexure. The appendix is visualized and appears normal. Calcified abdominal aorta. Normal inferior vena cava. Normal retroperitoneum. Normal urinary bladder. Small fatty umbilical hernia. There is a ventral hernia containing a loop of small bowel. Degenerative vertebral changes. CT/Abdomen/Pelvis WITH Contrast IMPRESSION: Ventral hernia and umbilical hernia. Possible mild wall thickening of the colon. Mesenteric stranding adjacent to the splenic flexure. Evaluation is limited due to incomplete distention. Distended gallbladder with borderline prominence of the common bile duct. Electronically Signed: Jimy Munoz DO at 17:08 EDT ,
[2024-06-19 12:42] VITALS: BP 186/63; PULSE 65; RESP 18; TEMP 36.3; O2SAT 92; BMI 48.6
[2024-06-19] MEDS: 0.9% Normal Saline (1000mL) 1,000 ML 999 ML IV ×2 (13:00→14:10)
[2024-06-19 15:23] VITALS: BP 140/74; PULSE 72; RESP 16; TEMP 36.6; O2SAT 100
== END | disposition home or self-care (01) ==
PROVIDERS: PCP Family Medicine Geriatric Medicine; Referring Provider Family Medicine Geriatric Medicine; Visit Provider Family Medicine Geriatric Medicine
DX: R10.9 Unspecified abdominal pain (principal); N39.0 Urinary tract infection, site not specified; R53.83 Other fatigue; E86.0 Dehydration
CPT/HCPCS: 96360; 96361; 36415; 74177; 80053; 85025; 87086; J7030; Q9967; A4216

== ENCOUNTER → 2024-06-20 | Outpatient (CLI) | payer MEDICARE, BC, SELFPAY | END | disposition home or self-care (01) | PROVIDERS: PCP Family Medicine Geriatric Medicine; Visit Provider Family Medicine Geriatric Medicine | DX: R19.7 Diarrhea, unspecified (principal) | CPT/HCPCS: 82274; 83630; 87070; 87177; 87205; 87209; 87329; 87493 ==

== ENCOUNTER 2024-06-21 10:27 | Emergency (ER) | payer SELFPAY ==
[2024-06-21 10:27] VITALS: BP 139/74; PULSE 70; RESP 18; TEMP 36.6; O2SAT 100; BMI 49.2
--- NOTE | 2024-06-21 11:04 | ED.VIS.GI ---
HPI HPI - GI History of Present Illness Chief Complaint: Diarrhea Informant: patient and spouse/S.O. Narrative Narrative: Patient has had diarrhea for about 11 days now. He states this started about 2 days after he got home from [place] and was eating at a seafood buffets. The only raw fish that he had was 3 raw oysters on halfshell that he tried because he had never had that before. Prior to the onset of diarrhea no recent antibiotics, no history of C. difficile that he knows of. He has been drinking water but not well he admits. He denies any abdominal pain, nausea, vomiting. He had some fevers early on up to 101 but not since. He saw his doctor within the last couple days, twice, he received an injection of antibiotics each time, a CT scan of the abdomen/pelvis, and he provided a stool sample in the office. Last shot of antibiotics he had was yesterday. He is not sure what it was. He was prescribed antibiotics but he has not started them or gotten them from the pharmacy yet. He states his doctor told him that if the diarrhea is not resolved by today he should come to the ER, the patient states presumably, to be admitted. He states he had 2 bouts of watery diarrhea this morning so far. He has been going 5-10 times per day, and yesterday was not necessarily improved compared with the day before that. [facility] Medical History Back pain Osteoarthritis Emphysema lung Hyperlipidemia Home Medications ?Medication ?Instructions ?Recorded ?Last Taken ?Type albuterol sulfate 90 mcg/actuation inhalation 06/24/21 Unknown History aerosol inhaler fluticasone fur. 100 mcg-umeclid ea inhalation 06/24/21 Unknown History 62.5 mcg-vilant 25 mcg inhalat.powder levothyroxine 25 mcg tablet ea PO 06/24/21 Unknown History montelukast 10 mg tablet 10 mg PO DAILY 06/24/21 Unknown History (Singulair) pravastatin 40 mg tablet ea PO 06/24/21 Unknown History oxycodone-acetaminophen 5 mg-325 1 tab PO Q6H PRN pain 3 days #12 05/09/24 Unknown Rx mg tablet (Percocet) tabs Allergy/AdvReac Type Severity Reaction Status Date / Time No Known Allergies Allergy Verified 06/21/24 10:28 Surgical History History of gastric bypass History of colonoscopy History of lung surgery Social History Smoking Status: Former smoker ROS ROS ED Constitutional Constitutional ED: Denies chills or fever(s) Eyes Eyes: Denies change in vision or diplopia ENT ENT ED: Denies rhinorrhea or sore throat Cardiovascular Cardiovascular: Denies chest pain, lightheadedness, palpitations or syncope Respiratory/Chest Respiratory/Chest: Denies cough or dyspnea Gastrointestinal Gastrointestinal: Reports diarrhea; Denies abdominal pain, hematochezia, melena, nausea or vomiting Genitourinary Genitourinary ED: Denies dysuria or hematuria Musculoskeletal Musculoskeletal: Denies back pain or neck pain Integumentary Denies abscess or rash Neurologic Neurologic: Denies headache(s), paresthesias or weakness Psychiatric Psychiatric: Denies anxiety or suicidal thoughts EXAM Physical Exam Const Vital Signs: 06/21/24 10:27 Temperature 98 F Temperature Source Temporal Pulse Rate 70 Respiratory Rate 18 Blood Pressure 139/74 H Blood Pressure Mean 95 Pulse Ox 100 Oxygen Delivery Method Room Air Positive well nourished, well developed and obese General Appearance ED: well developed and NAD Nutritional Appearance: obese HEENT Reports moist mucous membranes normocephalic and atraumatic Eyes PERRL and EOMs intact bilaterally Neck full ROM and supple Resp normal respiratory effort and clear to auscultation bilaterally Cardio regular rate, regular rhythm and no murmurs GI non-tender and non-distended Auscultation: hyperactive bowel sounds Palpation: soft Back/Spine no CVA tenderness General Back: other FROM Extremity normal to inspection General Extremety ED: Negative for edema, pulses abnormal or tenderness General Extremity: Negative for edema or pulses abnormal Neuro oriented x3, CN's II-XII intact bilaterally and no sensory deficits noted Sensorium / Orientation: awake and alert Motor Exam: strength 5/5 throughout Skin no rashes or lesions noted and no wounds MDM MDM MDM Narrative Medical decision making narrative: I offered the patient repeat labs and IV fluids but he refused unless he needs to be admitted. He states he feels well enough to go home does not want to be admitted if he does not have to be. I discussed with his PCP Dr. Fung. He said his intention was to have the patient come to the hospital if he was not feeling well or if his diarrhea was getting worse. The patient states that this is not happening. He states that the surgical assistant in the office [place] called him and said if your diarrhea is not gone by today then go to the ER per Dr. Fung. This sounds like it was a misunderstanding why he was sent here, and I agree that it sounds like his PCP is doing everything that I would do here in the ER. He had IV fluids as an outpatient, he had injections of Rocephin as an outpatient, and he is prescribed Levaquin and azithromycin which she has not started yet. He brought a diarrhea sample with him. I am having the lab do an enteric bacterial panel but at this time the patient does not want to wait for and wants to go home understandably. Encouraged to fill his prescriptions and take them as prescribed, and follow-up with his doctor after the weekend which he offered if he is still having diarrhea. History & Record Review Additional record(s) reviewed:: Prior outpatient record (CT possibly some colonic inflammatory changes, nothing acute; ova and parasites pending. C. difficile toxin negative but PCR positive, likely colonization not active infection. Fecal white blood cell positive, blood positive.) Lab Data Attestation: I reviewed the patient's lab results. Management Discussion w/another healthcare provider: PCP Discharge Plan Triage Chief Complaint: Diarrhea ED Provider: Manan Bowman Dx/Rx/DC Orders Clinical Impression: Acute infectious diarrhea Instructions: ED Diarrhea, Unknown Cause Prescriptions: No Action Trelegy Ellipta 100-62.5-25 mcg blister with device inhalation Patient Comments: TAKE 1 PUFF INHALED ONCE PER DAY FOR 90 DAYS levothyroxine 25 mcg tablet PO Patient Comments: TAKE 1 TABLET ORALLY ONCE PER DAY FOR 30 DAYS pravastatin 40 mg tablet PO Patient Comments: TAKE 1 TABLET ORALLY ONCE PER DAY FOR 90 DAYS TAKE AT BEDTIME albuterol sulfate 90 mcg/actuation HFA aerosol inhaler inhalation montelukast [Singulair] 10 mg tablet 10 mg PO DAILY oxycodone-acetaminophen [Percocet] 5-325 mg tablet 1 tab PO Q6H PRN (Reason: pain) 3 Days Qty: 12 0RF Primary Care Provider: Jose Fung Chi Referrals: Jose Fung Chi, MD [Primary Care Provider] - Activity Restrictions/Additional Instructions: Dr. Fung said if you are still having diarrhea after the weekend, he would be happy to see you on Monday. If it resolves and you are doing better you do not have to follow-up. If you are feeling worse, or feel like you are too weak to get around or having trouble keeping yourself hydrated, you may return to the ER at any time for evaluation and possibly admission. Get the antibiotics and start them soon as you are able. Print Language: New Zealander Disposition Disposition: Home, Self Care
== END 2024-06-21 17:39 | disposition home or self-care (01) ==
PROVIDERS: PCP Family Medicine Geriatric Medicine
DX: A09 Infectious gastroenteritis and colitis, unspecified (principal); J43.9 Emphysema, unspecified; E78.5 Hyperlipidemia, unspecified; E66.9 Obesity, unspecified; M19.90 Unspecified osteoarthritis, unspecified site; Z98.84 Bariatric surgery status; Z79.899 Other long term (current) drug therapy; Z87.891 Personal history of nicotine dependence
CPT/HCPCS: 99282; J7030

== ENCOUNTER → 2024-06-21 | Outpatient (CLI) | payer MEDICARE, BC, SELFPAY | END | disposition home or self-care (01) | PROVIDERS: PCP Family Medicine Geriatric Medicine; Visit Provider Family Medicine Geriatric Medicine | DX: R19.7 Diarrhea, unspecified (principal) | CPT/HCPCS: 87177; 87209 ==

== ENCOUNTER → 2024-08-01 | Outpatient (CLI) | payer MEDICARE, BC, SELFPAY | END | disposition home or self-care (01) | LOC: RAD 15:52 | PROVIDERS: PCP Family Medicine Geriatric Medicine; Referring Provider Family Medicine Geriatric Medicine; Visit Provider Family Medicine Geriatric Medicine | DX: M79.672 Pain in left foot (principal); M79.2 Neuralgia and neuritis, unspecified | CPT/HCPCS: 73630 ==

== ENCOUNTER → 2025-06-09 | Outpatient (CLI) | payer MEDICARE, BC, SELFPAY ==
[2025-06-09 15:09] LABS: Hematocrit 39.4 % (40-54); Hemoglobin 13.4 g/dL (13.0-16.5); Immature Granulocytes Count 0.030 X10^3/uL (0.0-0.0); Mean Corp Hgb Conc 34.0 g/dL (32-36); Mean Corpuscular Volume 90.4 fL (80-94); Mean Platelet Vol. 9.7 fl (6.2-12.0); NRBC Flagged by Analyzer 0 % (0-5); Platelet Count 195 K/mm3 (150-450); RBC Distribution Width CV 13.9 % (11.6-14.6); RBC Distribution Width SD 45.5 fl (35.1-43.9); Red Blood Count 4.36 M/mm3 (4.6-6.2); White Blood Count 8.5 K/mm3 (4.4-11.0)
[2025-06-09 16:18] LABS: AST(SGOT) 23 U/L (<=37); Alanine Aminotransfer ALT/SGPT 17 U/L (<=46); Albumin, Serum 3.8 g/dL (3.4-4.8); Alkaline Phosphatase 102 U/L (40-129); Anion Gap 12 (5-15); BUN 23 mg/dL (4-19); BUN/Creat Ratio 17.0 RATIO (10-20); Calcium,Total 8.8 mg/dL (7.6-11.0); Carbon Dioxide 18.9 mmol/L (21.0-32.0); Chloride 107 mmol/L (98-108); Globulin 3.3 g/dL (2.2-4.2); Glucose 100 mg/dL (70-99); Potassium 4.6 mmol/L (3.3-5.1); Vitamin D,25 Hydroxy 20.7 ng/mL (30-100)
[2025-06-09 22:56] LABS: Xtra Tube Kwok EXTRA TUBE
== END | disposition home or self-care (01) ==
LOC: POLAB3 14:55
PROVIDERS: PCP Family Medicine Geriatric Medicine; Visit Provider Family Medicine Geriatric Medicine
DX: E55.9 Vitamin D deficiency, unspecified (principal); R53.83 Other fatigue
CPT/HCPCS: 36415; 80053; 82306; 84443; 85025